=== PATIENT | male | born 1930 | race Caucasian/White ===

== ENCOUNTER 2017-02-16 11:51 | Inpatient (IN) | payer MEDICARE, BC ==
[2017-02-16] MEDS ORDERED: SODIUM CHLORIDE 0.9% 1,000 ML IV ONE ×2 (12:40→16:31)
[2017-02-16] MEDS ORDERED: SODIUM CHLORIDE 0.9% 500 ML IV ONE (12:40)
[2017-02-16 12:58] LABS: Basophils # (A) 0.1 k/uL (0-0.2); Basophils % (A) 1 %; CH 31.4; CHCM 33.6; Eosinophils # (A) 0.1 k/uL (0-0.7); Eosinophils % (A) 1 %; HCT 38.4 % (39.0-53.0); HDW 2.34; Luc # (Auto) 0.27; Luc % (Auto) 4; Lymphocytes # (A) 0.7 k/uL (1.0-4.8); Lymphocytes % (A) 10 %; MCH 31.8 pg (25.0-35.0); MCV 93.7 fL (80.0-100.0); Mean Platelet Volume 7.3; Monocytes # (A) 0.8 k/uL (0-1.0); Monocytes % (A) 11 %; Neutrophils % (A) 73 %; RDW 13.5 % (11.5-15.5); WBC 6.8 k/uL (3.8-10.6); WBC (Perox) 6.98
[2017-02-16 12:59] LABS: Glucose,Whole Blood 125 mg/dL (75-99)
--- NOTE | 2017-02-16 13:00 | ED ---
General Adult HPI - General Chief complaint: Altered Mental Status Stated complaint: ALTERED MENTAL Time Seen by Provider: 02/16/17 12:39 Source: patient, RN notes reviewed, old records reviewed Mode of arrival: ambulatory Limitations: no limitations - History of Present Illness Initial comments: This is an 86-year-old male the ER for evaluation of hallucinations and delusions. Patient has medical history of similar symptoms when taking benzodiazepines. Patient currently not on any new medications no but benzodiazepines. Patient does have extensive medical history. Mainly surrounding heart disease. Patient has no traumas no falls no fevers no headache and no neurological complaints. Family states patient is normally lucid, denies drugs or alcohol, states patient's symptoms seemed rapists persistent and increasing, they seem to be believed thoughts - Related Data Home Medications Medication Instructions Recorded Confirmed Aspirin 81 mg PO QAM 04/15/16 02/16/17 Enalapril Maleate [Vasotec] 2.5 mg PO QAM 04/15/16 02/16/17 Furosemide [Lasix] 20 mg PO DAILY@1200 04/15/16 02/16/17 Potassium Chloride [Klor-Con 10] 10 meq PO QAM 04/15/16 02/16/17 Simvastatin [Zocor] 40 mg PO HS 04/15/16 02/16/17 Tamsulosin [Flomax] 0.4 mg PO HS 04/15/16 02/16/17 Warfarin [Coumadin] 2.5 mg PO MOWEFR 04/15/16 02/16/17 Warfarin [Coumadin] 5 mg PO SUTUTHSA 04/15/16 02/16/17 Vit C/E/Zn/Coppr/Lutein/Zeaxan 1 cap PO BID 02/16/17 02/16/17 [Preservision Areds 2 Softgel] Allergies Allergy/AdvReac Type Severity Reaction Status Date / Time lorazepam [From Ativan] AdvReac Hallucinati Verified 02/16/17 12:34 ons zolpidem [From Ambien] AdvReac Hallucinati Verified 02/16/17 12:34 ons Review of Systems ROS Statement: Those systems with pertinent positive or pertinent negative responses have been documented in the HPI. ROS Other: All systems not noted in ROS Statement are negative. Past Medical History Past Medical History: Atrial Fibrillation, Coronary Artery Disease (CAD), Hyperlipidemia, Hypertension, Myocardial Infarction ([place]), Prostate Disorder Additional Past Medical History / Comment(s): Sleep apnea, no cpap, macular degeneration of right eye, blind L eye. Last Myocardial Infarction Date:: 2006 History of Any Multi-Drug Resistant Organisms: None Reported Past Surgical History: Cardiac Valve Replacement, Coronary Bypass/CABG, Heart Catheterization Additional Past Surgical History / Comment(s): 2006 - CABG - triple, aortic valve replaced, Loop procedure on 06-18-16. Past Anesthesia/Blood Transfusion Reactions: No Reported Reaction Past Psychological History: No Psychological Hx Reported Smoking Status: Never smoker Past Alcohol Use History: Occasional Additional Past Alcohol Use History / Comment(s): Hx. of drinking alcohol daily. states he currently not drinking alcohol because of these upcoming procedures. Past Drug Use History: None Reported - Past Family History Mother Family Medical History: Cancer Additional Family Medical History / Comment(s): breast cancer at 62 Father Additional Family Medical History / Comment(s): old age at 82 General Exam Limitations: no limitations General appearance: alert, in no apparent distress Head exam: Present: atraumatic, normocephalic, normal inspection Eye exam: Present: normal appearance, PERRL, EOMI. Absent: scleral icterus, conjunctival injection, periorbital swelling ENT exam: Present: normal exam, mucous membranes moist Neck exam: Present: normal inspection. Absent: tenderness, meningismus, lymphadenopathy Respiratory exam: Present: normal lung sounds bilaterally. Absent: respiratory distress, wheezes, rales, rhonchi, stridor Cardiovascular Exam: Present: regular rate, normal rhythm, normal heart sounds. Absent: systolic murmur, diastolic murmur, rubs, gallop, clicks GI/Abdominal exam: Present: soft, normal bowel sounds. Absent: distended, tenderness, guarding, rebound, rigid Extremities exam: Present: normal inspection, full ROM, normal capillary refill. Absent: tenderness, pedal edema, joint swelling, calf tenderness Back exam: Present: normal inspection Neurological exam: Present: alert, oriented X3, CN II-XII intact Psychiatric exam: Present: normal affect, normal mood Skin exam: Present: warm, dry, intact, normal color. Absent: rash Course Vital Signs 02/16/17 02/16/17 02/16/17 12:16 13:21 14:46 Temperature 98.7 F 97.3 F L Pulse Rate 75 85 81 Respiratory 18 18 18 Rate Blood Pressure 108/70 122/69 139/65 O2 Sat by Pulse 95 96 100 Oximetry 02/16/17 15:55 Temperature Pulse Rate 80 Respiratory 18 Rate Blood Pressure 156/70 O2 Sat by Pulse 96 Oximetry - Reevaluation(s) Reevaluation #1: 02/16/17 13:00 At this time patient is able to answer questions appropriately EKG Findings - EKG Comments: EKG Findings:: EKG shows A. fib rate of 88, QRS was 66, QTC 5:15 Medical Decision Making - Medical Decision Making 78 male here with altered mental status, patient positive UTI. Patient be admitted for IV antibiotics, IV resuscitation IV fluid. - Lab Data Result diagrams: 02/16/17 12:44 02/16/17 12:44 Lab Results 02/16/17 02/16/17 02/16/17 Range/Units 12:33 12:44 12:44 WBC (3.8-10.6) k/uL RBC (4.30-5.90) m/uL Hgb (13.0-17.5) gm/dL Hct (39.0-53.0) % MCV (80.0-100.0) fL MCH (25.0-35.0) pg MCHC (31.0-37.0) g/dL RDW (11.5-15.5) % Plt Count (150-450) k/uL Neutrophils % % Lymphocytes % % Monocytes % % Eosinophils % % Basophils % % Neutrophils # (1.3-7.7) k/uL Lymphocytes # (1.0-4.8) k/uL Monocytes # (0-1.0) k/uL Eosinophils # (0-0.7) k/uL Basophils # (0-0.2) k/uL PT (9.0-12.0) sec INR (<1.1) APTT (22.0-30.0) sec Sodium (137-145) mmol/L Potassium (3.5-5.1) mmol/L Chloride (98-107) mmol/L Carbon Dioxide (22-30) mmol/L Anion Gap mmol/L BUN (9-20) mg/dL Creatinine (0.66-1.25) mg/dL Est GFR (MDRD) Af Amer (>60 ml/min/1.73 sqM) Est GFR (MDRD) Non-Af (>60 ml/min/1.73 sqM) Glucose (74-99) mg/dL POC Glucose (mg/dL) 125 H (75-99) mg/dL POC Glu [employer] Representative ID Jyoti Grewal Calcium (8.4-10.2) mg/dL Phosphorus (2.5-4.5) mg/dL Magnesium (1.6-2.3) mg/dL Total Bilirubin (0.2-1.3) mg/dL AST (17-59) U/L ALT (21-72) U/L Alkaline Phosphatase (38-126) U/L Ammonia 10 (<30) umol/L Total Creatine Kinase 166 (55-170) U/L CK-MB (CK-2) 4.8 H* (0.0-2.4) ng/mL CK-MB (CK-2) Rel Index 2.9 Troponin I 0.045 H* (0.000-0.034) ng/mL Total Protein (6.3-8.2) g/dL Albumin (3.5-5.0) g/dL Urine Color Urine Appearance (Clear) Urine pH (5.0-8.0) Ur Specific [place] (1.001-1.035) Urine Protein (Negative) Urine Glucose (UA) (Negative) Urine Ketones (Negative) Urine Blood (Negative) Urine Nitrite (Negative) Urine Bilirubin (Negative) Urine Urobilinogen (<2.0) mg/dL Ur Leukocyte Esterase (Negative) Urine RBC (0-5) /hpf Urine WBC (0-5) /hpf Ur Squamous Epith Cells (0-4) /hpf Urine Bacteria (None) /hpf Urine Mucus (None) /hpf Urine Opiates Screen (NotDetected) Ur Oxycodone Screen (NotDetected) Urine Methadone Screen (NotDetected) Ur Propoxyphene Screen (NotDetected) Ur Barbiturates Screen (NotDetected) U Tricyclic Antidepress (NotDetected) Ur Phencyclidine Scrn (NotDetected) Ur Amphetamines Screen (NotDetected) U Methamphetamines Scrn (NotDetected) U Benzodiazepines Scrn (NotDetected) Urine Cocaine Screen (NotDetected) U Marijuana (THC) Screen (NotDetected) 02/16/17 02/16/17 02/16/17 Range/Units 12:44 12:44 12:44 WBC 6.8 (3.8-10.6) k/uL RBC 4.10 L (4.30-5.90) m/uL Hgb 13.0 (13.0-17.5) gm/dL Hct 38.4 L (39.0-53.0) % MCV 93.7 (80.0-100.0) fL MCH 31.8 (25.0-35.0) pg MCHC 34.0 (31.0-37.0) g/dL RDW 13.5 (11.5-15.5) % Plt Count 146 L (150-450) k/uL Neutrophils % 73 % Lymphocytes % 10 % Monocytes % 11 % Eosinophils % 1 % Basophils % 1 % Neutrophils # 5.0 (1.3-7.7) k/uL Lymphocytes # 0.7 L (1.0-4.8) k/uL Monocytes # 0.8 (0-1.0) k/uL Eosinophils # 0.1 (0-0.7) k/uL Basophils # 0.1 (0-0.2) k/uL PT 19.7 H (9.0-12.0) sec INR 2.0 (<1.1) APTT 28.8 (22.0-30.0) sec Sodium 132 L (137-145) mmol/L Potassium 4.6 (3.5-5.1) mmol/L Chloride 101 (98-107) mmol/L Carbon Dioxide 22 (22-30) mmol/L Anion Gap 9 mmol/L BUN 32 H (9-20) mg/dL Creatinine 0.97 (0.66-1.25) mg/dL Est GFR (MDRD) Af Amer >60 (>60 ml/min/1.73 sqM) Est GFR (MDRD) Non-Af >60 (>60 ml/min/1.73 sqM) Glucose 115 H (74-99) mg/dL POC Glucose (mg/dL) (75-99) mg/dL POC Glu [employer] Representative ID Calcium 8.5 (8.4-10.2) mg/dL Phosphorus 2.9 (2.5-4.5) mg/dL Magnesium 2.3 (1.6-2.3) mg/dL Total Bilirubin 0.9 (0.2-1.3) mg/dL AST 64 H (17-59) U/L ALT 70 (21-72) U/L Alkaline Phosphatase 88 (38-126) U/L Ammonia (<30) umol/L Total Creatine Kinase (55-170) U/L CK-MB (CK-2) (0.0-2.4) ng/mL CK-MB (CK-2) Rel Index Troponin I (0.000-0.034) ng/mL Total Protein 6.4 (6.3-8.2) g/dL Albumin 3.5 (3.5-5.0) g/dL Urine Color Urine Appearance (Clear) Urine pH (5.0-8.0) Ur Specific [place] (1.001-1.035) Urine Protein (Negative) Urine Glucose (UA) (Negative) Urine Ketones (Negative) Urine Blood (Negative) Urine Nitrite (Negative) Urine Bilirubin (Negative) Urine Urobilinogen (<2.0) mg/dL Ur Leukocyte Esterase (Negative) Urine RBC (0-5) /hpf Urine WBC (0-5) /hpf Ur Squamous Epith Cells (0-4) /hpf Urine Bacteria (None) /hpf Urine Mucus (None) /hpf Urine Opiates Screen (NotDetected) Ur Oxycodone Screen (NotDetected) Urine Methadone Screen (NotDetected) Ur Propoxyphene Screen (NotDetected) Ur Barbiturates Screen (NotDetected) U Tricyclic Antidepress (NotDetected) Ur Phencyclidine Scrn (NotDetected) Ur Amphetamines Screen (NotDetected) U Methamphetamines Scrn (NotDetected) U Benzodiazepines Scrn (NotDetected) Urine Cocaine Screen (NotDetected) U Marijuana (THC) Screen (NotDetected) 02/16/17 Range/Units 13:51 WBC (3.8-10.6) k/uL RBC (4.30-5.90) m/uL Hgb (13.0-17.5) gm/dL Hct (39.0-53.0) % MCV (80.0-100.0) fL MCH (25.0-35.0) pg MCHC (31.0-37.0) g/dL RDW (11.5-15.5) % Plt Count (150-450) k/uL Neutrophils % % Lymphocytes % % Monocytes % % Eosinophils % % Basophils % % Neutrophils # (1.3-7.7) k/uL Lymphocytes # (1.0-4.8) k/uL Monocytes # (0-1.0) k/uL Eosinophils # (0-0.7) k/uL Basophils # (0-0.2) k/uL PT (9.0-12.0) sec INR (<1.1) APTT (22.0-30.0) sec Sodium (137-145) mmol/L Potassium (3.5-5.1) mmol/L Chloride (98-107) mmol/L Carbon Dioxide (22-30) mmol/L Anion Gap mmol/L BUN (9-20) mg/dL Creatinine (0.66-1.25) mg/dL Est GFR (MDRD) Af Amer (>60 ml/min/1.73 sqM) Est GFR (MDRD) Non-Af (>60 ml/min/1.73 sqM) Glucose (74-99) mg/dL POC Glucose (mg/dL) (75-99) mg/dL POC Glu [employer] Representative ID Calcium (8.4-10.2) mg/dL Phosphorus (2.5-4.5) mg/dL Magnesium (1.6-2.3) mg/dL Total Bilirubin (0.2-1.3) mg/dL AST (17-59) U/L ALT (21-72) U/L Alkaline Phosphatase (38-126) U/L Ammonia (<30) umol/L Total Creatine Kinase (55-170) U/L CK-MB (CK-2) (0.0-2.4) ng/mL CK-MB (CK-2) Rel Index Troponin I (0.000-0.034) ng/mL Total Protein (6.3-8.2) g/dL Albumin (3.5-5.0) g/dL Urine Color Yellow Urine Appearance Cloudy (Clear) Urine pH 5.5 (5.0-8.0) Ur Specific [place] 1.012 (1.001-1.035) Urine Protein Negative (Negative) Urine Glucose (UA) Negative (Negative) Urine Ketones Negative (Negative) Urine Blood Small H (Negative) Urine Nitrite Positive (Negative) Urine Bilirubin Negative (Negative) Urine Urobilinogen <2.0 (<2.0) mg/dL Ur Leukocyte Esterase Moderate H (Negative) Urine RBC 1 (0-5) /hpf Urine WBC 38 H (0-5) /hpf Ur Squamous Epith Cells <1 (0-4) /hpf Urine Bacteria Moderate H (None) /hpf Urine Mucus Rare H (None) /hpf Urine Opiates Screen Not Detected (NotDetected) Ur Oxycodone Screen Not Detected (NotDetected) Urine Methadone Screen Not Detected (NotDetected) Ur Propoxyphene Screen Not Detected (NotDetected) Ur Barbiturates Screen Not Detected (NotDetected) U Tricyclic Antidepress Not Detected (NotDetected) Ur Phencyclidine Scrn Not Detected (NotDetected) Ur Amphetamines Screen Not Detected (NotDetected) U Methamphetamines Scrn Not Detected (NotDetected) U Benzodiazepines Scrn Not Detected (NotDetected) Urine Cocaine Screen Not Detected (NotDetected) U Marijuana (THC) Screen Not Detected (NotDetected) - Radiology Data Radiology results: report reviewed (CT brain negative, chest x-ray negative for acute disease), image reviewed Disposition Clinical Impression: Altered mental status, UTI (urinary tract infection) Disposition: ADMITTED IP TO THIS [facility] Condition: Fair
[2017-02-16 13:10] LABS: ALT 70 U/L (21-72); AST 64 U/L (17-59); Alkaline Phosphatase 88 U/L (38-126); Anion Gap 9 mmol/L; Blood Urea Nitrogen 32 mg/dL (9-20); Calcium 8.5 mg/dL (8.4-10.2); Carbon Dioxide 22 mmol/L (22-30); Chloride 101 mmol/L (98-107); Glucose 115 mg/dL (74-99); Magnesium 2.3 mg/dL (1.6-2.3); Non-African American GFR(MDRD) >60 (>60 ml/min/1.73 sqM); Phosphorous 2.9 mg/dL (2.5-4.5); Potassium 4.6 mmol/L (3.5-5.1); Sodium 132 mmol/L (137-145); Total Bilirubin 0.9 mg/dL (0.2-1.3); Total Protein 6.4 g/dL (6.3-8.2)
[2017-02-16 13:17] LABS: Partial Thromboplastin Time 28.8 sec (22.0-30.0); Prothrombin Time 19.7 sec (9.0-12.0)
[2017-02-16 13:38] LABS: Creatine Kinase MB 4.8 ng/mL (0.0-2.4); Troponin I 0.045 ng/mL (0.000-0.034)
[2017-02-16 14:07] LABS: Appearance,Urine Cloudy (Clear); Bacteria,Urine Moderate /hpf; Bilirubin,Urine Negative (Negative); Glucose,Urine (UA) Negative (Negative); Ketones,Urine Negative (Negative); Leukocyte Esterase,Urine Moderate (Negative); Mucus,Urine Rare /hpf; Nitrite,Urine Positive (Negative); PH, Urine 5.5 (5.0-8.0); Particle Count 21001; Protein,Urine Negative (Negative); RBC,Urine 1 /hpf (0-5); Specific Gravity,Urine 1.012 (1.001-1.035); Squamous Epithelial Cell,Urine <1 /hpf (0-4); UA Billing (MACRO vs. MICRO) MICRO; Urobilinogen,Urine <2.0 mg/dL (<2.0); WBC,Urine 38 /hpf (0-5)
--- NOTE | 2017-02-16 14:27 | CT ---
EXAMINATION TYPE: CT brain wo con DATE OF EXAM: 02/16/2017 2:19 PM COMPARISON: NONE HISTORY: 78-year-old male, poor historian. Patient has no complaints at time of study. Patient show s signs of confusion and altered mental status per family. TECHNIQUE: Examination was done in axial plane without intravenous contrast. Coronal and sagittal r econstructions performed. CT DLP: 1138 mGycm Automated exposure control for dose reduction was used. FINDINGS: There is no evidence of acute intracranial hemorrhage, acute ischemic changes, mass, mass-effect, or extra-axial fluid collection. There is no effacement of cerebral sulci or basal subarachnoid cister ns. There is no hydrocephalus. There is no midline shift. Simpson-white matter distinction is preserv ed. Focal 1 cm calcification along the anterior right falx likely dystrophic dural calcifications. Mild v entricular prominence likely secondary to central cerebral volume loss. Visualized paranasal sinuses and mastoid air cells are well pneumatized. Orbits and globes are intact . There is soft tissue gas seen along the right visiting professor space tracking up the right temporal. IMPRESSION: 1. Mild central atrophy without acute intracranial abnormality seen. 2. Soft tissue gas in the right visiting professor space tracking up the right mormon. This air appears to be intravenous and could relate to peripheral line placement or other intravenous injections. Clinicall y correlate to exclude gas relating to tracking infection or penetrating injury.
--- NOTE | 2017-02-16 14:48 | XR ---
EXAMINATION TYPE: XR chest 2V DATE OF EXAM: 02/16/2017 2:39 PM COMPARISON: 06/26/2016 TECHNIQUE: PA and lateral views submitted. HISTORY: Altered mental status FINDINGS: The lungs are clear and there is no pneumothorax, pleural effusion, or focal pneumonia. Prominence of the interstitium is seen with marked cardiomegaly, postsurgical change including valve replacement surgery. Cardiac device seen. No pneumothorax. Arthropathy of the shoulders. Underlying COPD seen. H ypertrophic and degenerative change of the spine noted. IMPRESSION: 1. Cardiomegaly with findings suggestive of central venous congestion.
[2017-02-16] MEDS ORDERED: FUROSEMIDE 10 MG/ML 2 ML VIAL IV ONE (19:08)
[2017-02-16] MEDS ORDERED: SODIUM CHLORIDE 0.9% 1,000 ML IV SCH (19:15)
[2017-02-16] MEDS ORDERED: WARFARIN 5 MG TAB PO SCH (22:30)
[2017-02-16] MEDS: WARFARIN 2.5 MG TAB PO SCH (23:20)
[2017-02-17] MEDS: FUROSEMIDE 20 MG TAB PO SCH (08:29)
[2017-02-17 08:55] LABS: CH 31.3; HCT 39.1 % (39.0-53.0); HDW 2.36; HGB 12.8 gm/dL (13.0-17.5); INR 2.5 (<1.1); MCH 31.2 pg (25.0-35.0); MCHC 32.6 g/dL (31.0-37.0); MCV 95.5 fL (80.0-100.0); Mean Platelet Volume 7.1; Prothrombin Time 24.1 sec (9.0-12.0); RDW 13.5 % (11.5-15.5); WBC 9.5 k/uL (3.8-10.6)
[2017-02-17] MEDS ORDERED: ENOXAPARIN 40 MG/0.4 ML SYRINGE SQ SCH (09:00)
[2017-02-17] MEDS ORDERED: FUROSEMIDE 10 MG/ML 2 ML VIAL IV ONE (09:00)
[2017-02-17] MEDS: LISINOPRIL 5 MG TAB PO SCH (09:03)
[2017-02-17] MEDS: POTASSIUM CHLORIDE ER 10 MEQ TAB.ER.PRT PO SCH (09:03)
[2017-02-17] MEDS: ASPIRIN 81 MG CHEW PO SCH (09:03)
--- NOTE | 2017-02-17 09:29 | HP ---
DATE OF ADMISSION: CHIEF COMPLAINT: Confusion. HISTORY OF PRESENT ILLNESS: This is an 86-year-old gentleman who was referred to the emergency room. The called me up and said that the patient since , for about 3 days, has been having some hallucinations and inappropriate behavior, lying around in bed and some chills off and on, but no cough and congestion. The patient's was not sure what was going on so she called and I recommended the patient be evaluated in the emergency room. The patient was seen in the ER. The patient's vital signs are stable. He is intermittently confused. The patient has no other focal neurological deficits. He did have a CT scan of the brain did not reveal any suggestion of CVA. The patient was noted to have evidence of urinary tract infection. He denies any dysuria, hematuria. Does have frequency. The patient has had a previous history of coronary artery bypass graft and VSD and has history of mitral regurgitation. He has chronic atrial fibrillation and has a pacemaker sick sinus syndrome. The patient has been on anticoagulation. No recent falls. No recent fever, chills, or any change in medications. He does use Ativan at night for sleep, which he has not taken for a few days. The says during the night he just was lying in bed just talking away, irrelevant things. At present, the patient does give a good history; however, suddenly he will flip around talking in a sense that he does not realize he is in the hospital emergency room. He feels that the night prior to admission that there were people in the opposite room who were just talking about some bills, which subsequently was settled and such and such. PAST MEDICAL HISTORY: Significant for history of long-standing hypertension, history of VSD with a previous repair and then subsequent aortic valve replacement and bypass surgery. The patient also has a history of chronic atrial fibrillation. Back in April last year the patient did have episode of syncope and noted to have complete heart block. The patient required a pacemaker. The patient does have a history of chronic atrial fibrillation. He also has history of hyperlipidemia and gout. 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 No history of any rheumatic fever. No history of any myocardial infarction or CVA. PAST SURGICAL HISTORY: Significant for left knee surgery, hernia surgery tonsillectomy cardiac surgery x2 also cataract surgery. He had a history of varicose veins with spontaneous bleeding. No surgical procedure was done. The patient has not had any further problems relating to that. PERSONAL HISTORY: Nonsmoker. Alcohol none. ALLERGIES: None known. MEDICATIONS: 1. Coumadin 5 mg Thursday, Thursday, Thursday, , Thursday and 2.5 mg Thursday, Thursday and Thursday. 2. Multivitamins. 3. Eye vitamins. 4. He also takes Flomax 0.4 mg at bedtime. 5. Zocor 40 mg daily. 6. Potassium chloride 10 mEq daily. 7. Lasix 20 mg daily. 8. Enalapril 2.5 mg daily. 9. Aspirin 81 mg daily. 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 Patient is and lives with spouse. FAMILY MEDICAL HISTORY: The patient has 2 daughters, one daughter has a history of paroxysmal atrial fibrillation. His one son has rheumatoid arthritis and other son has hyperlipidemia. Another son in good health. The other daughter is in good health. REVIEW OF SYSTEMS: NEURO: Denies any headaches, dizziness. No double vision, blurred vision. Denies symptoms of TIA, syncope, seizure. PSYCH: Present symptoms of intermittent confusion and some imaginary scenarios. CARDIAC: No symptoms of chest pain, angina, palpitations. Denies shortness of breath. However, the patient is mildly tachypneic while lying in bed. RESPIRATORY: Denies shortness of breath, cough, hemoptysis. Does have some dyspnea on exertion, which is stable. The patient, however, denies any chest pain. GI: No nausea, vomiting, abdominal pain, heartburn, diarrhea, constipation, hematochezia, melena. : No symptoms of dysuria, hematuria, urgency. Does have some frequency. EXTREMITIES: Denies pain. History of mild chronic edema of ankles. CONSTITUTIONAL: No fever or chills. SKIN: No rash. ENT: Blind right eye. ENT: No sore throat or neck pain. MUSCULOSKELETAL: Some mild chronic arthritic pain. PHYSICAL EXAMINATION: Pleasant gentleman, at present, mildly tachypneic, lying in bed even though he denied shortness of breath. Vital signs revealed temperature 98, pulse 86, respirations 18, blood pressure 141/61, pulse ox of 95% on 2 liters. HEENT: Normocephalic. Neck decreased range of motion. Left pupil reactive. Nostrils are clear. Oral cavity moist. Pharynx, no exudates. Neck reveals no JVD, carotid bruits, or thyromegaly. Neck is supple. CHEST EXAMINATION: Trachea central. Increased AP diameter of chest. Increased percussion noted bilaterally. On auscultation the patient has wet crackles bilateral bases. CARDIAC: Distant heart sounds. S1, S2 with no gallops. Systolic murmur 2/6 apex. Irregular rhythm. ABDOMEN: Soft. Bowel sounds are active. EXTREMITIES: Reveal trace edema of ankles. NEUROLOGIC: Awake, alert, and oriented intermittently with intermittent confusion. Moves cranial nerves II through XII except for the vision loss in the right eye, appear intact. The patient does have symmetrical movements of the hand. He has no difficulty swallowing. Speech is clear. Moves both upper and lower extremities fairly reasonably well with coordinated fashion. LABORATORY ASSESSMENT: CBC which revealed white count 6.8, hemoglobin 13, platelet count 146, INR of 2.0, sodium 132, BUN 32, creatinine 0.97, GFR is greater than 60. Glucose 115. AST 64. Ammonia is 10. CK-MB was 4.8 with a troponin 0.045. CPK 166. Urine positive for nitrates, 38 WBCs. Drug screen was negative. A brain CT: Mild central atrophy without any intracranial abnormality was seen. Chest x-ray reveals a mild aortic aneurysmal dilatation, stable, and cardiomegaly with findings suggestive of central venous congestion. ASSESSMENT: 1. Urinary tract infection. 2. Metabolic encephalopathy with intermittent confusion. 3. 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 4. Chronic atrial fibrillation. 5. History of sick sinus syndrome. 6. Anticoagulated status. 7. Mild prerenal azotemia. PLAN: We will continue the patient on Rocephin. The patient was given some IV fluids in the ER and the patient's chest examination clinically reveals bilateral wet crackles at the bases. The patient is mildly tachypneic even though he does not complain of shortness of breath with oxygen. The patient will be given Lasix and monitor his respiratory status closely. The patient was admitted to the hospital for further monitoring for how his present medical status evolves. Patient's prognosis remains guarded. Condition was discussed with the daughter. It should be noted that the patient has had previously no history of dementia or any mental status changes.
[2017-02-17 10:27] LABS: Anion Gap 9 mmol/L; Blood Urea Nitrogen 25 mg/dL (9-20); Calcium 8.3 mg/dL (8.4-10.2); Carbon Dioxide 24 mmol/L (22-30); Chloride 103 mmol/L (98-107); Glucose 108 mg/dL (74-99); Non-African American GFR(MDRD) >60 (>60 ml/min/1.73 sqM); Potassium 4.4 mmol/L (3.5-5.1); Sodium 136 mmol/L (137-145)
[2017-02-17] MEDS: TAMSULOSIN 0.4 MG CAP.ER.24H PO SCH (20:39)
[2017-02-17] MEDS ORDERED: WARFARIN 5 MG TAB PO SCH (22:28)
[2017-02-18] MEDS: LISINOPRIL 5 MG TAB PO SCH (07:54)
[2017-02-18] MEDS: POTASSIUM CHLORIDE ER 10 MEQ TAB.ER.PRT PO SCH (07:54)
[2017-02-18] MEDS: ASPIRIN 81 MG CHEW PO SCH (07:54)
[2017-02-18 10:11] LABS: INR 2.6 (<1.1); Prothrombin Time 24.9 sec (9.0-12.0)
--- NOTE | 2017-02-18 10:11 | PN ---
DATE OF SERVICE: 02/17/2017 CHIEF COMPLAINT: Re-evaluation. HISTORY OF PRESENT ILLNESS: This 86-year-old was admitted to the hospital because of confusion, some hallucinations, and intermittent confusion. The patient was also noted to have evidence of urinary tract infection. He is known to have a history of chronic atrial fibrillation, previous VSD, and previous cardiac surgery. The patient has some symptoms of congestive heart failure. Yesterday when seen in the emergency room he did not have symptoms. He did get some IV fluids. At the time of my evaluation he was mildly tachypneic and did have some wet crackles at the bases. The patient was given some Lasix with help. His BNP was 6830. The patient, during the night, has had confusion off and on. This morning he is lucid at the time of examination, however, later reported to be confused. REVIEW OF SYSTEMS: NEURO: Denies any headaches, dizziness. PSYCH: No anxiety. CARDIAC: No chest pain, angina, palpitations. RESPIRATORY: Denies shortness of breath, cough. GI: No nausea, vomiting, abdominal pain, diarrhea. : No symptoms of dysuria, hematuria. EXTREMITIES: Denies pain. CONSTITUTIONAL: No fever or chills. PHYSICAL EXAMINATION: An 86-year-old gentleman, at present in no distress. He, however, has taken his short off and is undressed in the bed. Upon discussion with him, he does after a while talk about being locked out of the house with no keys, etc. VITAL SIGNS: Temperature 97.3, pulse 93, respirations 16, blood pressure 143/71, pulse ox of 91% on 2 liters. HEENT: Normocephalic. NECK: No JVD. CHEST: Clear to auscultation with generalized decreased air flow and a few crackles at the left base. CARDIAC: Distant heart sounds. S1, S2 with no gallops. Systolic murmur 2/6 left sternal border. ABDOMEN: Soft, bowel sounds present. Extremities reveal no edema. NEUROLOGIC: Awake, alert, oriented with intermittent confusion. LABORATORY EVALUATION: Reveals CBC which shows a hemoglobin of 9.5, white count 12.8, platelets 172, INR is 2.5. Sodium is 136. Some improvement from yesterday. BUN 25, creatinine 1.03, glucose 108. ASSESSMENT: 1. Acute altered mental status with some delirium. 2. Congestive heart failure secondary to systolic dysfunction and diastolic dysfunction. 3. Acute congestive heart failure secondary to systolic and diastolic dysfunction. 4. Chronic atrial fibrillation. 5. Urinary tract infection. 6. Hyponatremia improved. 7. Prerenal azotemia, improved. PLAN: The patient is stable. Continue present medical regimen. The patient's condition discussed with the patient and spouse over the phone. Prognosis remains guarded. The patient still continues to be somewhat delirious at times, may add Seroquel. The patient has no history of any alcoholism.
[2017-02-18] MEDS: FUROSEMIDE 20 MG TAB PO SCH (12:24)
[2017-02-18] MEDS: TAMSULOSIN 0.4 MG CAP.ER.24H PO SCH (20:18)
[2017-02-18] MEDS: WARFARIN 2.5 MG TAB PO SCH (20:18)
--- NOTE | 2017-02-18 22:44 | PN ---
CHIEF COMPLAINT: Re-evaluation. HISTORY OF PRESENT ILLNESS: This gentleman was admitted to the hospital with increased confusion and evidence of urinary tract infection. The patient's general condition is improved today. He is less confused. The patient did sleep through the night. The patient this morning is not talking of any irrelevant and wrong things. REVIEW OF SYSTEMS: NEURO: Denies any headaches, dizziness. PSYCH: No anxiety. CARDIAC: No chest pain, angina, palpitations. RESPIRATORY: No shortness of breath, cough, hemoptysis. GI: No nausea, vomiting, abdominal pain, diarrhea. : No symptoms of dysuria, hematuria. EXTREMITIES: Denies pain, edema. CONSTITUTIONAL: No fever, chills. PHYSICAL EXAMINATION: Pleasant gentleman in no distress. VITAL SIGNS: Stable. Temperature 98.2, pulse 85, respiration 16, blood pressure 119/69, pulse ox 97% on room air. HEENT: Normocephalic. NECK: No JVD. Chest is clear to auscultation with mild decreased air flow at the left base. CARDIAC: Normal S1, S2 with no gallops. Systolic murmur 2/6, left sternal border. ABDOMEN: Soft. No palpable masses. Bowel sounds normal. No organomegaly. No abdominal bruits. Extremities reveal no edema. NEUROLOGIC: Awake, alert, oriented x3 with well-coordinated movements. Patient is able to make appropriate entire conversation, unlike the past 2 days. Moves both upper and lower extremities. LABORATORY ASSESSMENT: Urine culture is growing E coli. Hemoglobin is 12.8. INR was 2.6. ASSESSMENT: 1. Urinary tract infection with sepsis. 2. Encephalopathy/delirium, resolving. 3. Congestive cardiac failure, improved. 4. History of VSD. 5. History of aortic valve surgery. 6. Chronic atrial fibrillation. 7. Anticoagulated on Coumadin. PLAN: The patient at present is stable. Continue present medical regimen. His breathing is improved. The patient's delirium is improved. The patient will be continued on present antibiotics. Potential discharge home tomorrow. Patient's condition discussed with his on the phone.
[2017-02-19] MEDS: ASPIRIN 81 MG CHEW PO SCH (07:32)
[2017-02-19] MEDS: POTASSIUM CHLORIDE ER 10 MEQ TAB.ER.PRT PO SCH (07:33)
[2017-02-19] MEDS: LISINOPRIL 5 MG TAB PO SCH (07:33)
[2017-02-19 08:02] VITALS: BP 136/68; PULSE 81; RESP 16; TEMP 97.7
[2017-02-19] MEDS: FUROSEMIDE 20 MG TAB PO SCH (11:08)
--- NOTE | 2017-02-25 18:58 | P.DS ---
Providers Date of admission: 02/16/17 16:31 Attending physician: Reji Lopez Primary care physician: Reji Lopez Hospital Course: Hospital course: This 86-year-old gentleman was admitted to the hospital with a new onset of confusion and some hallucinations. Patient had no fever or white count but had evidence of urinary tract infection. Urine did grow E. coli. The patient was brought in the emergency room in view of about after symptoms continued for a couple of days. Patient does have underlying history of chronic atrial fibrillation, coronary artery disease, mitral regurgitation and a previous CABG and valve surgery. The patient was hemodynamically stable. After initial evaluation in the emergency room is admitted to the hospital because of the significant confusion and inability to make appropriate judgment. Following hospitalization patient's placed on IV antibiotics and hydration. Patient's symptoms improved with resolution of his symptoms. The patient was ambulatory. He is discharged home. Final diagnosis to include 1. Urinary tract infection 2. Encephalopathy/delirium secondary to urinary tract infection 3. Chronic atrial fibrillation ablation 4. Valvular heart disease 5. Hypertension. Patient Condition at Discharge: Fair Plan - Discharge Summary New Discharge Prescriptions: Amoxicillin 500 mg PO Q8H #30 capsule Discharge Medication List Aspirin 81 mg PO QAM 04/15/16 [History] Enalapril Maleate [Vasotec] 2.5 mg PO QAM 04/15/16 [History] Furosemide [Lasix] 20 mg PO DAILY@1200 04/15/16 [History] Potassium Chloride [Klor-Con 10] 10 meq PO QAM 04/15/16 [History] Simvastatin [Zocor] 40 mg PO HS 04/15/16 [History] Tamsulosin [Flomax] 0.4 mg PO HS 04/15/16 [History] Warfarin [Coumadin] 2.5 mg PO MOWEFR 04/15/16 [History] Warfarin [Coumadin] 5 mg PO SUTUTHSA 04/15/16 [History] Vit C/E/Zn/Coppr/Lutein/Zeaxan [Preservision Areds 2 Softgel] 1 cap PO BID 02/16 [History] Amoxicillin 500 mg PO Q8H #30 capsule 02/19/17 [Rx] Follow up Appointment(s)/Referral(s): Reji Lopez MD [Primary Care Provider] - 03/02/17 4:30 pm Patient Instructions/Handouts: Urinary Tract Infection in Men ([place]) Activity/Diet/Wound Care/Special Instructions: Cardiac diet. Discharge Disposition: HOME SELF-CARE
== END 2017-02-19 15:07 | disposition home or self-care (01) | DRG 689 ==
LOC: EC 11:51 → 6SEL 16:31 → 4MS4W 19:53
PROVIDERS: ADMIT Internal Medicine; ATTEND Internal Medicine
DX: N39.0 Urinary tract infection, site not specified (principal); G93.41 Metabolic encephalopathy; I50.41 Acute combined systolic (congestive) and diastolic (congestive) heart failure; E87.1 Hypo-osmolality and hyponatremia; R44.3 Hallucinations, unspecified; F05 Delirium due to known physiological condition; I49.5 Sick sinus syndrome; I48.2 Chronic atrial fibrillation; I11.0 Hypertensive heart disease with heart failure; R79.89 Other specified abnormal findings of blood chemistry; I67.9 Cerebrovascular disease, unspecified; R06.82 Tachypnea, not elsewhere classified; B96.20 Unspecified Escherichia coli [E. coli] as the cause of diseases classified elsewhere; N42.9 Disorder of prostate, unspecified; I25.10 Atherosclerotic heart disease of native coronary artery without angina pectoris; I34.0 Nonrheumatic mitral (valve) insufficiency; I25.2 Old myocardial infarction; G47.30 Sleep apnea, unspecified; M19.90 Unspecified osteoarthritis, unspecified site; H54.41 Blindness, right eye, normal vision left eye; H35.30 Unspecified macular degeneration; M10.9 Gout, unspecified; E78.5 Hyperlipidemia, unspecified; Z95.0 Presence of cardiac pacemaker; Z79.899 Other long term (current) drug therapy; Z79.82 Long term (current) use of aspirin; Z79.01 Long term (current) use of anticoagulants; Z95.1 Presence of aortocoronary bypass graft; Z80.3 Family history of malignant neoplasm of breast; Z95.2 Presence of prosthetic heart valve; Z98.49 Cataract extraction status, unspecified eye; Z86.79 Personal history of other diseases of the circulatory system; Z88.8 Allergy status to other drugs, medicaments and biological substances; Z82.49 Family history of ischemic heart disease and other diseases of the circulatory system; Z87.74 Personal history of (corrected) congenital malformations of heart and circulatory system
CPT/HCPCS: 36415; 70450; 71020; 80048; 80053; 80306; 81001; 82140; 82550; 82553; 83735; 83880; 84100; 84484; 85025; 85027; 85610; 85730; 87040; 87077; 87086; 87186; 93005; 94760; 96361; 96365; 96375; 99285

== ENCOUNTER 2017-07-07 15:51 | Emergency (ER) | payer MEDICARE, BC ==
--- NOTE | 2017-07-07 17:43 | ED ---
General Adult HPI - General Chief complaint: Wound/Laceration Stated complaint: Laceration Lft thumb/pt on blood thinners Time Seen by Provider: 07/07/17 17:34 Source: patient, RN notes reviewed Mode of arrival: ambulatory Limitations: no limitations - History of Present Illness Initial comments: 86-year-old male presents to the emergency department with a chief complaint left thumb laceration. He cut it around 3:00 today and he was also. He is up- to-date on his tetanus. He noticed bleeding and a deep cuts we got that he should be seen. Patient states no other injuries from the incident. Patient states he has no lightheadedness or dizziness. She does take Coumadin. Patient denies any recent fever, chills, shortness of breath, chest pain, back pain, abdominal pain, nausea vomiting, numbness or tingling, dysuria or hematuria, constipation or diarrhea, headaches or visual changes, or any other current symptoms. - Related Data Home Medications Medication Instructions Recorded Confirmed Aspirin 81 mg PO QAM 04/15/16 02/16/17 Enalapril Maleate [Vasotec] 2.5 mg PO QAM 04/15/16 02/16/17 Furosemide [Lasix] 20 mg PO DAILY@1200 04/15/16 02/16/17 Potassium Chloride [Klor-Con 10] 10 meq PO QAM 04/15/16 02/16/17 Simvastatin [Zocor] 40 mg PO HS 04/15/16 02/16/17 Tamsulosin [Flomax] 0.4 mg PO HS 04/15/16 02/16/17 Warfarin [Coumadin] 2.5 mg PO MOWEFR 04/15/16 02/16/17 Warfarin [Coumadin] 5 mg PO SUTUTHSA 04/15/16 02/16/17 Vit C/E/Zn/Coppr/Lutein/Zeaxan 1 cap PO BID 02/16/17 02/16/17 [Preservision Areds 2 Softgel] Previous Rx's Medication Instructions Recorded Amoxicillin 500 mg PO Q8H #30 capsule 02/19/17 Cephalexin [Keflex] 500 mg PO Q6HR #40 cap 07/07/17 Allergies Allergy/AdvReac Type Severity Reaction Status Date / Time lorazepam [From Ativan] AdvReac Hallucinati Verified 07/07/17 16:18 ons zolpidem [From Ambien] AdvReac Hallucinati Verified 07/07/17 16:18 ons Review of Systems ROS Statement: Those systems with pertinent positive or pertinent negative responses have been documented in the HPI. ROS Other: All systems not noted in ROS Statement are negative. Past Medical History Past Medical History: Atrial Fibrillation, Coronary Artery Disease (CAD), Hyperlipidemia, Hypertension, Myocardial Infarction ([place]), Prostate Disorder Additional Past Medical History / Comment(s): Sleep apnea, no cpap, macular degeneration of right eye, blind L eye. Last Myocardial Infarction Date:: 2006 History of Any Multi-Drug Resistant Organisms: None Reported Past Surgical History: Cardiac Valve Replacement, Coronary Bypass/CABG, Heart Catheterization Additional Past Surgical History / Comment(s): 2006 - CABG - triple, aortic valve replaced, Loop procedure on 06-18-16. Past Anesthesia/Blood Transfusion Reactions: No Reported Reaction Past Psychological History: No Psychological Hx Reported Smoking Status: Never smoker Past Alcohol Use History: Daily Past Drug Use History: None Reported - Past Family History Mother Family Medical History: Cancer Additional Family Medical History / Comment(s): breast cancer at 62 Father Additional Family Medical History / Comment(s): old age at 82 General Exam - General Exam Comments Initial Comments: General: The patient is awake and alert, in no distress, and does not appear acutely ill. Neck: The neck is supple, there is no tenderness or JVD. Cardiovascular: There is a regular rate and rhythm. No murmur, rub or gallop is appreciated. Respiratory: Lungs are clear to auscultation, respirations are non-labored, breath sounds are equal. No wheezes, stridor, rales, or rhonchi. Musculoskeletal: Sensation intact with 2+ pulses. Left upper extremity Full range of motion of left hand and all digits. Patient does appear to have a 7 cm circular type laceration to the left distal thumb. Nail and nailbed are intact. Neurological: CN II-XII intact, There are no obvious motor or sensory deficits. Coordination appears grossly intact. Speech is normal. Skin: Skin is warm and dry and no rashes or lesions are noted. Psychiatric: Normal mood and affect. Limitations: no limitations Course Vital Signs 07/07/17 16:14 Temperature 98.5 F Pulse Rate 74 Respiratory 20 Rate Blood Pressure 129/79 O2 Sat by Pulse 98 Oximetry Procedures - Procedures Initial comment: The skin was anesthetized with 1% lidocaine. The laceration was then cleansed with Betadine and irrigated with normal saline. The wound was inspected, and there was no evidence of injury to deep structures. No foreign body was noted in the wound. A total of 7 skin sutures were placed utilizing using 5-0 nylon to a 6 cm left thumb laceration Medical Decision Making - Medical Decision Making 86-year-old male presents emergency Department chief complaint of left thumb laceration. At this time patient underwent x-rays underwent suture care. Patient's x-ray does appear to have an open fracture. He was given Ancef here. We did discuss close follow-up with orthopedics for continued care of the left thumb open fracture. We did discuss return parameters on the family patient's questions. They state [facility] management plan. They will be discharged. - Radiology Data Radiology results: report reviewed, image reviewed Disposition Clinical Impression: Fracture of thumb, left, open, Laceration of left thumb Disposition: HOME SELF-CARE Condition: Stable Instructions: Laceration (ED), Care For Your Stitches (ED) Additional Instructions: Please use medication as discussed. Please follow up with family doctor if symptoms have not improved over the next two days. Please return to the emergency room if your symptoms increase or worsen or for any other concerns. Please return to the emergency room in 8-10 days to have sutures removed. Please leave wound covered for the first 24-48 hours and then leave open to air after that time. Please use clean soap and water to clean the suture area to prevent scabbing over the top of your sutures. Please watch for any signs of infection which may include but not limited to increased pain, swelling, redness , fever or chills. Please return to the emergency room if any signs of infection do occur. Please return to the emergency room for any other concerns or complications. Prescriptions: Cephalexin [Keflex] 500 mg PO Q6HR #40 cap Referrals: Reji Lopez MD [Primary Care Provider] - 1-2 days Chuy Gruber MD [STAFF PHYSICIAN] - 1-2 days Time of Disposition: 18:28
--- NOTE | 2017-07-07 17:56 | XR ---
EXAMINATION TYPE: XR finger LT DATE OF EXAM: 07/07/2017 COMPARISON: NONE HISTORY: Laceration TECHNIQUE: 3 views FINDINGS: There is soft tissue and bone deformity involving the distal phalanx of the thumb related t o significant laceration. There is no dislocation. IP joint is intact. IMPRESSION: Fracture with laceration deformity of the midshaft of the distal phalanx of the left thum b.
[2017-07-07] MEDS ORDERED: ceFAZolin 1,000 MG VIAL IM STA (18:26)
[2017-07-07 18:48] VITALS: BP 150/78; PULSE 76; RESP 16; TEMP 98
== END 2017-07-07 18:47 | disposition home or self-care (01) ==
LOC: EC 15:51
DX: S62.522B Displaced fracture of distal phalanx of left thumb, initial encounter for open fracture (principal); I48.91 Unspecified atrial fibrillation; I25.10 Atherosclerotic heart disease of native coronary artery without angina pectoris; E78.5 Hyperlipidemia, unspecified; I10 Essential (primary) hypertension; Z88.8 Allergy status to other drugs, medicaments and biological substances; Z79.82 Long term (current) use of aspirin; Z79.01 Long term (current) use of anticoagulants; Z79.899 Other long term (current) drug therapy; W26.9XXA Contact with unspecified sharp object(s), initial encounter
CPT/HCPCS: 73140; 99283; 96372; 12002; J0690

== ENCOUNTER 2017-07-11 23:56 | Emergency (ER) | payer MEDICARE, BC ==
--- NOTE | 2017-07-12 00:30 | ED ---
General Adult HPI - General Source: patient, RN notes reviewed Mode of arrival: ambulatory Limitations: no limitations <Indio Steinberg - Last Filed: 07/12/17 00:27> <Angel Macdonald - Last Filed: 07/12/17 02:37> - General Chief complaint: Abdominal Pain Stated complaint: Stomach Pain/Constipation Time Seen by Provider: 07/12/17 00:11 - History of Present Illness Initial comments: 86 yo male presents with a 2 day history of lower abdominal pain. Pain is bilateral. Sharp and crampy in nature. Pain is minimal at the time of evaluation. States his last bowel movement was 5 days ago. He has been passing gas throughout the day today. No nausea or vomiting. No fever or chills. No chest pain or shortness of breath. No upper abdominal pain. No history of diarrhea. (Indio Steinberg) - Related Data Home Medications Medication Instructions Recorded Confirmed Aspirin 81 mg PO QAM 04/15/16 02/16/17 Enalapril Maleate [Vasotec] 2.5 mg PO QAM 04/15/16 02/16/17 Furosemide [Lasix] 20 mg PO DAILY@1200 04/15/16 02/16/17 Potassium Chloride [Klor-Con 10] 10 meq PO QAM 04/15/16 02/16/17 Simvastatin [Zocor] 40 mg PO HS 04/15/16 02/16/17 Tamsulosin [Flomax] 0.4 mg PO HS 04/15/16 02/16/17 Warfarin [Coumadin] 2.5 mg PO MOWEFR 04/15/16 02/16/17 Warfarin [Coumadin] 5 mg PO SUTUTHSA 04/15/16 02/16/17 Vit C/E/Zn/Coppr/Lutein/Zeaxan 1 cap PO BID 02/16/17 02/16/17 [Preservision Areds 2 Softgel] Previous Rx's Medication Instructions Recorded Amoxicillin 500 mg PO Q8H #30 capsule 02/19/17 Cephalexin [Keflex] 500 mg PO Q6HR #40 cap 07/07/17 Allergies Allergy/AdvReac Type Severity Reaction Status Date / Time lorazepam [From Ativan] AdvReac Hallucinati Verified 07/12/17 00:00 ons zolpidem [From Ambien] AdvReac Hallucinati Verified 07/12/17 00:00 ons Review of Systems ROS Other: All systems not noted in ROS Statement are negative. <Indio Steinberg - Last Filed: 07/12/17 00:27> ROS Other: All systems not noted in ROS Statement are negative. <Jose JuanskipAngel Shorty - Last Filed: 07/12/17 02:37> ROS Statement: Those systems with pertinent positive or pertinent negative responses have been documented in the HPI. Past Medical History Past Medical History: Atrial Fibrillation, Coronary Artery Disease (CAD), Hyperlipidemia, Hypertension, Myocardial Infarction ([place]), Prostate Disorder Additional Past Medical History / Comment(s): Sleep apnea, no cpap, macular degeneration of right eye, blind L eye. Last Myocardial Infarction Date:: 2006 History of Any Multi-Drug Resistant Organisms: None Reported Past Surgical History: Cardiac Valve Replacement, Coronary Bypass/CABG, Heart Catheterization Additional Past Surgical History / Comment(s): 2006 - CABG - triple, aortic valve replaced, Loop procedure on 06-18-16. Past Anesthesia/Blood Transfusion Reactions: No Reported Reaction Past Psychological History: No Psychological Hx Reported Smoking Status: Never smoker Past Alcohol Use History: Daily Past Drug Use History: None Reported - Past Family History Mother Family Medical History: Cancer Additional Family Medical History / Comment(s): breast cancer at 62 Father Additional Family Medical History / Comment(s): old age at 82 <Indio Steinberg - Last Filed: 07/12/17 00:27> General Exam Limitations: no limitations General appearance: alert, in no apparent distress Head exam: Present: atraumatic, normocephalic Eye exam: Present: normal appearance, PERRL ENT exam: Present: normal exam, mucous membranes moist Neck exam: Present: normal inspection. Absent: tenderness, meningismus Respiratory exam: Present: normal lung sounds bilaterally. Absent: respiratory distress Cardiovascular Exam: Present: regular rate, normal rhythm GI/Abdominal exam: Present: soft, distended, tenderness (Suprapubic), normal bowel sounds. Absent: guarding, rebound Extremities exam: Present: pedal edema, other (Chronic venous stasis) Neurological exam: Present: alert, oriented X3, CN II-XII intact. Absent: motor sensory deficit Psychiatric exam: Present: normal affect, normal mood Skin exam: Present: warm, dry, intact. Absent: cyanosis, diaphoretic <Indio Steinberg - Last Filed: 07/12/17 00:27> Course <Indio Steinberg - Last Filed: 07/12/17 00:27> <Angel Macdonald - Last Filed: 07/12/17 02:37> Vital Signs 07/11/17 23:58 Temperature 98.4 F Pulse Rate 69 Respiratory 20 Rate Blood Pressure 165/73 O2 Sat by Pulse 93 L Oximetry - Reevaluation(s) Reevaluation #1: 07/12/17 00:29 Patient's care is signed out to the oncoming physician Dr. Macdonald, laboratory studies and abdominal x-ray pending. (Indio Steinberg) Medical Decision Making - Lab Data Result diagrams: 07/12/17 00:50 07/12/17 00:50 <Angel Macdonald - Last Filed: 07/12/17 02:37> - Lab Data Lab Results 07/12/17 07/12/17 07/12/17 Range/Units 00:50 00:50 00:50 WBC 10.0 (3.8-10.6) k/uL RBC 4.51 (4.30-5.90) m/uL Hgb 14.2 (13.0-17.5) gm/dL Hct 42.4 (39.0-53.0) % MCV 94.2 (80.0-100.0) fL MCH 31.5 (25.0-35.0) pg MCHC 33.4 (31.0-37.0) g/dL RDW 14.1 (11.5-15.5) % Plt Count 211 (150-450) k/uL Neutrophils % 88 % Lymphocytes % 5 % Monocytes % 5 % Eosinophils % 1 % Basophils % 0 % Neutrophils # 8.7 H (1.3-7.7) k/uL Lymphocytes # 0.5 L (1.0-4.8) k/uL Monocytes # 0.5 (0-1.0) k/uL Eosinophils # 0.1 (0-0.7) k/uL Basophils # 0.0 (0-0.2) k/uL Sodium 135 L (137-145) mmol/L Potassium 4.8 (3.5-5.1) mmol/L Chloride 103 (98-107) mmol/L Carbon Dioxide 24 (22-30) mmol/L Anion Gap 8 mmol/L BUN 24 H (9-20) mg/dL Creatinine 0.90 (0.66-1.25) mg/dL Est GFR (MDRD) Af Amer >60 (>60 ml/min/1.73 sqM) Est GFR (MDRD) Non-Af >60 (>60 ml/min/1.73 sqM) Glucose 138 H (74-99) mg/dL Plasma Lactic Acid Jorge 1.1 (0.7-2.0) mmol/L Calcium 8.9 (8.4-10.2) mg/dL Total Bilirubin 1.1 (0.2-1.3) mg/dL AST 36 (17-59) U/L ALT 38 (21-72) U/L Alkaline Phosphatase 85 (38-126) U/L Total Protein 7.1 (6.3-8.2) g/dL Albumin 4.1 (3.5-5.0) g/dL Amylase 32 (30-110) U/L Lipase 88 (23-300) U/L Urine Color Urine Appearance (Clear) Urine pH (5.0-8.0) Ur Specific [place] (1.001-1.035) Urine Protein (Negative) Urine Glucose (UA) (Negative) Urine Ketones (Negative) Urine Blood (Negative) Urine Nitrite (Negative) Urine Bilirubin (Negative) Urine Urobilinogen (<2.0) mg/dL Ur Leukocyte Esterase (Negative) Urine RBC (0-5) /hpf Urine WBC (0-5) /hpf Hyaline Casts (0-2) /lpf Urine Mucus (None) /hpf 07/12/17 Range/Units 00:50 WBC (3.8-10.6) k/uL RBC (4.30-5.90) m/uL Hgb (13.0-17.5) gm/dL Hct (39.0-53.0) % MCV (80.0-100.0) fL MCH (25.0-35.0) pg MCHC (31.0-37.0) g/dL RDW (11.5-15.5) % Plt Count (150-450) k/uL Neutrophils % % Lymphocytes % % Monocytes % % Eosinophils % % Basophils % % Neutrophils # (1.3-7.7) k/uL Lymphocytes # (1.0-4.8) k/uL Monocytes # (0-1.0) k/uL Eosinophils # (0-0.7) k/uL Basophils # (0-0.2) k/uL Sodium (137-145) mmol/L Potassium (3.5-5.1) mmol/L Chloride (98-107) mmol/L Carbon Dioxide (22-30) mmol/L Anion Gap mmol/L BUN (9-20) mg/dL Creatinine (0.66-1.25) mg/dL Est GFR (MDRD) Af Amer (>60 ml/min/1.73 sqM) Est GFR (MDRD) Non-Af (>60 ml/min/1.73 sqM) Glucose (74-99) mg/dL Plasma Lactic Acid Jorge (0.7-2.0) mmol/L Calcium (8.4-10.2) mg/dL Total Bilirubin (0.2-1.3) mg/dL AST (17-59) U/L ALT (21-72) U/L Alkaline Phosphatase (38-126) U/L Total Protein (6.3-8.2) g/dL Albumin (3.5-5.0) g/dL Amylase (30-110) U/L Lipase (23-300) U/L Urine Color Yellow Urine Appearance Clear (Clear) Urine pH 5.0 (5.0-8.0) Ur Specific [place] 1.012 (1.001-1.035) Urine Protein Negative (Negative) Urine Glucose (UA) Negative (Negative) Urine Ketones Negative (Negative) Urine Blood Small H (Negative) Urine Nitrite Negative (Negative) Urine Bilirubin Negative (Negative) Urine Urobilinogen <2.0 (<2.0) mg/dL Ur Leukocyte Esterase Negative (Negative) Urine RBC 9 H (0-5) /hpf Urine WBC <1 (0-5) /hpf Hyaline Casts 8 H (0-2) /lpf Urine Mucus Rare H (None) /hpf Disposition <Indio Steinberg - Last Filed: 07/12/17 00:27> <Angel Macdonald - Last Filed: 07/12/17 02:37> Clinical Impression: Constipation, Abdominal pain Disposition: HOME SELF-CARE Condition: Good Instructions: Constipation (ED) Referrals: Reji Lopez MD [Primary Care Provider] - 1-2 days
[2017-07-12 01:05] LABS: Basophils % (A) 0 %; CH 31.7; CHCM 33.8; Eosinophils # (A) 0.1 k/uL (0-0.7); Eosinophils % (A) 1 %; HCT 42.4 % (39.0-53.0); HDW 2.33; HGB 14.2 gm/dL (13.0-17.5); Luc # (Auto) 0.13; Luc % (Auto) 1; Lymphocytes # (A) 0.5 k/uL (1.0-4.8); Lymphocytes % (A) 5 %; MCH 31.5 pg (25.0-35.0); MCHC 33.4 g/dL (31.0-37.0); MCV 94.2 fL (80.0-100.0); Monocytes # (A) 0.5 k/uL (0-1.0); Monocytes % (A) 5 %; Neutrophils # (A) 8.7 k/uL (1.3-7.7); Neutrophils % (A) 88 %; RBC 4.51 m/uL (4.30-5.90); RDW 14.1 % (11.5-15.5)
[2017-07-12 01:08] LABS: Appearance,Urine Clear (Clear); Bilirubin,Urine Negative (Negative); Glucose,Urine (UA) Negative (Negative); Ketones,Urine Negative (Negative); Leukocyte Esterase,Urine Negative (Negative); Mucus,Urine Rare /hpf; Nitrite,Urine Negative (Negative); Particle Count 1060; Protein,Urine Negative (Negative); RBC,Urine 9 /hpf (0-5); Specific Gravity,Urine 1.012 (1.001-1.035); UA Billing (MACRO vs. MICRO) MICRO; Urobilinogen,Urine <2.0 mg/dL (<2.0); WBC,Urine <1 /hpf (0-5)
[2017-07-12 01:12] LABS: ALT 38 U/L (21-72); AST 36 U/L (17-59); Alkaline Phosphatase 85 U/L (38-126); Amylase 32 U/L (30-110); Anion Gap 8 mmol/L; Blood Urea Nitrogen 24 mg/dL (9-20); Calcium 8.9 mg/dL (8.4-10.2); Carbon Dioxide 24 mmol/L (22-30); Chloride 103 mmol/L (98-107); Glucose 138 mg/dL (74-99); Non-African American GFR(MDRD) >60 (>60 ml/min/1.73 sqM); Potassium 4.8 mmol/L (3.5-5.1); Sodium 135 mmol/L (137-145); Total Bilirubin 1.1 mg/dL (0.2-1.3); Total Protein 7.1 g/dL (6.3-8.2)
--- NOTE | 2017-07-12 01:13 | XR ---
EXAM: XR Abdomen, 1 View CLINICAL HISTORY: Reason: abdominal pain. Constipation for 5 days. TECHNIQUE: Frontal upright view of the abdomen/pelvis. COMPARISON: No relevant prior studies available. FINDINGS: Gaseous distention of the colon and small bowel loops. No definite small bowel dilatation; however, there is significant overlap noted in the upper quadrants. Left base pulmonary patchy opacities noted. No organomegaly or soft tissue mass. No abnormal abdominal calcifications. Osseous structures are intact. IMPRESSION: Significant gaseous distention of colon and small bowel loops. Findings most likely represent ileus; however, low-grade partial small bowel obstruction is not excluded. Correlate clinically. Need for short interval serial abdominal x-rays may be determined as clinically warranted.
[2017-07-12] MEDS ORDERED: RX INFO: IV CONTRAST WAS GIVEN 1 EACH MISC MISCELLANE PRN (01:21)
[2017-07-12] MEDS ORDERED: SODIUM CHLORIDE 0.9% 1,000 ML IV STA ×2 (01:21)
--- NOTE | 2017-07-12 02:05 | CT ---
EXAM: CT Abdomen and Pelvis With Intravenous Contrast CLINICAL HISTORY: Reason: Pain TECHNIQUE: Axial computed tomography images of the abdomen and pelvis with intravenous contrast. DLP is 1143.20 mGy-cm. This CT exam was performed using one or more of the following dose reduction techniques: automated exposure control, adjustment of the mA and/or kV according to patient size, and/or use of iterative reconstruction technique. COMPARISON: No relevant prior studies available. FINDINGS: Liver, gallbladder, spleen, pancreas, and both adrenal glands are normal. The right kidney contains a 2.4 cm cortical cyst in the upper pole and a 4.1 cm cortical cyst in the midpole. No evidence of hydronephrosis in either kidney. Urinary bladder is normal. There is significant gaseous distention of the colon. There is interposition of distended colonic loops into the right upper quadrant and under the right hemidiaphragm. Small amount of free fluid is seen in the right upper quadrant and right lower quadrant. There is a focal tapering of the sigmoid colon at the rectosigmoid junction (series 3 image 60). The appendix is not definitely seen. No evidence of small bowel obstruction. Osseous structures are intact. 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 IMPRESSION: Significant gaseous distention of the colon with interposition of distended colonic loops under the right hemidiaphragm. No there is a focal tapering of the sigmoid colon at the rectosigmoid junction; however, there is no other tapered or twisted point in the colon. Findings are most suggestive of colonic ileus. Sigmoid volvulus is felt to be less likely but is not entirely excluded. Small amounts of free fluid were noted in the right upper quadrant and right lower quadrant. [employer] 07/12/17 02:09 Call Doctor Regarding Volvulus, called Dr. Macdonald
[2017-07-12] MEDS ORDERED: SENNOSIDES-DOCUSATE SODIUM 1 EACH TAB PO STA (02:37)
[2017-07-12] MEDS ORDERED: MAGNESIUM CITRATE 296 ML BOTTLE PO ONE (02:37)
[2017-07-12 03:33] VITALS: BP 125/58; PULSE 90; RESP 18; TEMP 97.9
== END 2017-07-12 03:33 | disposition home or self-care (01) ==
LOC: EC 23:56
DX: K59.00 Constipation, unspecified (principal); I48.91 Unspecified atrial fibrillation; I25.10 Atherosclerotic heart disease of native coronary artery without angina pectoris; E78.5 Hyperlipidemia, unspecified; I10 Essential (primary) hypertension; Z88.8 Allergy status to other drugs, medicaments and biological substances; Z79.82 Long term (current) use of aspirin; Z79.01 Long term (current) use of anticoagulants; Z79.899 Other long term (current) drug therapy
CPT/HCPCS: 36415; 80053; 82150; 83605; 83690; 85025; 81001; 87086; 74000; 74177; 99284; 96360; Q9967

== ENCOUNTER 2018-03-18 02:05 | Emergency (ER) | payer MEDICARE, BC ==
[2018-03-18] MEDS ORDERED: ONDANSETRON 4 MG/2 ML VIAL IVP STA (02:31)
[2018-03-18] MEDS ORDERED: SODIUM CHLORIDE 0.9% 500 ML IV STA ×2 (02:31→06:42)
--- NOTE | 2018-03-18 02:33 | ED ---
Abdominal Pain HPI <Angel Macdonald - Last Filed: 03/18/18 07:45> - General Source: patient, family Mode of arrival: ambulatory Limitations: no limitations <Linda Keith - Last Filed: 03/18/18 17:12> - General Chief Complaint: Abdominal Pain Stated Complaint: Abdominal Pain, Constipation Time Seen by Provider: 03/18/18 02:20 - History of Present Illness Initial Comments: 87-year-old male patient presents to the emergency department today for complaints of diffuse abdominal pain and bloating. Patient states that pain started early this morning. He states that he has not had a bowel movement for the last 3 days and thinks this may be contributing. Patient states that the pain waxes and wanes. States that he has been nauseated but has not vomited. He denies any difficulty with urination. Denies any fevers or chills with this. Denies any history of abdominal surgeries. Patient denies any recent rash , shortness breath, chest pain, back pain, numbness, tingling, dizziness, weakness, hematuria, dysuria, urinary urgency, urinary frequency, headache, visual changes, or any other complaints. (Linda Keith) - Related Data Home Medications Medication Instructions Recorded Confirmed Aspirin 81 mg PO QAM 04/15/16 03/18/18 Enalapril Maleate [Vasotec] 2.5 mg PO QAM 04/15/16 03/18/18 Furosemide [Lasix] 30 mg PO AC-BID 04/15/16 03/18/18 Potassium Chloride [Klor-Con 10] 10 meq PO QAM 04/15/16 03/18/18 Simvastatin [Zocor] 40 mg PO HS 04/15/16 03/18/18 Tamsulosin [Flomax] 0.4 mg PO HS 04/15/16 03/18/18 Warfarin [Coumadin] 2.5 mg PO MOWEFR 04/15/16 03/18/18 Warfarin [Coumadin] 5 mg PO SUTUTHSA 04/15/16 03/18/18 Vit C/E/Zn/Coppr/Lutein/Zeaxan 1 cap PO BID 02/16/17 03/18/18 [Preservision Areds 2 Softgel] Previous Rx's Medication Instructions Recorded Amoxicillin 500 mg PO Q8H #30 capsule 02/19/17 Cephalexin [Keflex] 500 mg PO Q6HR #40 cap 07/07/17 Dicyclomine [Bentyl] 20 mg PO QID #40 tablet 03/18/18 Naproxen [Naprosyn] 250 mg PO BID #30 tab 03/18/18 Polyethylene Glycol 3350 [Miralax] 17 gm PO DAILY #30 packet 03/18/18 Allergies Allergy/AdvReac Type Severity Reaction Status Date / Time lorazepam [From Ativan] AdvReac Hallucinati Verified 03/18/18 06:55 ons zolpidem [From Ambien] AdvReac Hallucinati Verified 03/18/18 06:55 ons Review of Systems ROS Other: All systems not noted in ROS Statement are negative. <Angel Macdonald - Last Filed: 03/18/18 07:45> ROS Other: All systems not noted in ROS Statement are negative. <Linda Keith - Last Filed: 03/18/18 17:12> ROS Statement: Those systems with pertinent positive or pertinent negative responses have been documented in the HPI. Past Medical History Past Medical History: Atrial Fibrillation, Coronary Artery Disease (CAD), Hyperlipidemia, Hypertension, Myocardial Infarction ([place]), Prostate Disorder Additional Past Medical History / Comment(s): Sleep apnea, no cpap, macular degeneration of right eye, blind L eye. Last Myocardial Infarction Date:: 2006 History of Any Multi-Drug Resistant Organisms: None Reported Past Surgical History: Cardiac Valve Replacement, Coronary Bypass/CABG, Heart Catheterization Additional Past Surgical History / Comment(s): 2006 - CABG - triple, aortic valve replaced, Loop procedure on 06-18-16. Past Anesthesia/Blood Transfusion Reactions: No Reported Reaction Past Psychological History: No Psychological Hx Reported Smoking Status: Never smoker Past Alcohol Use History: Daily Past Drug Use History: None Reported - Past Family History Mother Family Medical History: Cancer Additional Family Medical History / Comment(s): breast cancer at 62 Father Additional Family Medical History / Comment(s): old age at 82 <Linda Keith - Last Filed: 03/18/18 17:12> General Exam Limitations: no limitations General appearance: alert, in no apparent distress, other (This is a well- developed, well-nourished adult male patient in no acute distress. Vital signs upon presentation are temperature 98.3F, pulse 63, respirations 20, blood pressure 124/71, pulse ox 95% on room air.) Eye exam: Present: normal appearance, PERRL, EOMI. Absent: scleral icterus, conjunctival injection, periorbital swelling ENT exam: Present: normal exam, normal oropharynx, mucous membranes moist Respiratory exam: Present: normal lung sounds bilaterally. Absent: respiratory distress, wheezes, rales, rhonchi, stridor Cardiovascular Exam: Present: regular rate, normal rhythm, normal heart sounds. Absent: systolic murmur, diastolic murmur, rubs, gallop, clicks GI/Abdominal exam: Present: soft, distended (Upper abdominal distention), tenderness (Generalized upper abdominal tenderness), normal bowel sounds, other (Tympani noted to abdominal percussion.). Absent: guarding, rebound, rigid Neurological exam: Present: alert, oriented X3, CN II-XII intact Psychiatric exam: Present: normal affect, normal mood Skin exam: Present: warm, dry, intact, normal color. Absent: rash <Linda Keith - Last Filed: 03/18/18 17:12> Vital Signs 03/18/18 03/18/18 03/18/18 02:10 04:01 08:04 Temperature 98.3 F 98.2 F Pulse Rate 63 63 66 Respiratory 20 18 18 Rate Blood Pressure 124/71 132/94 130/60 O2 Sat by Pulse 95 90 L 95 Oximetry Medical Decision Making - Lab Data Result diagrams: 03/18/18 02:45 03/18/18 02:45 <Angel Macdonald - Last Filed: 03/18/18 07:45> - Lab Data Result diagrams: 03/18/18 02:45 03/18/18 02:45 - Radiology Data Radiology results: report reviewed, image reviewed <Linda Keith - Last Filed: 03/18/18 17:12> - Medical Decision Making 87 year-old male patient presented to the emergency department today for evaluation of abdominal pain and constipation 3 days. Physical examination did reveal a grossly distended upper abdomen. Labs reviewed and are relatively unremarkable. Did perform x-ray of the abdomen which did show a dilated bowel, CT of the abdomen and pelvis was obtained and did show redemonstrated bowel dilation which they feel is related to chronic ileus. Very similar to previous exams. Patient was given a glycerin suppository. Care is handed over to my attending Dr. Macdonald at 0450 who will manage care until discharge. (Linda Keith) - Lab Data Lab Results 03/18/18 03/18/18 Range/Units 02:45 02:45 WBC 9.0 (3.8-10.6) k/uL RBC 4.48 (4.30-5.90) m/uL Hgb 13.9 (13.0-17.5) gm/dL Hct 41.2 (39.0-53.0) % MCV 91.9 (80.0-100.0) fL MCH 30.9 (25.0-35.0) pg MCHC 33.7 (31.0-37.0) g/dL RDW 14.4 (11.5-15.5) % Plt Count 190 (150-450) k/uL Neutrophils % 87 % Lymphocytes % 6 % Monocytes % 6 % Eosinophils % 1 % Basophils % 0 % Neutrophils # 7.8 H (1.3-7.7) k/uL Lymphocytes # 0.5 L (1.0-4.8) k/uL Monocytes # 0.5 (0-1.0) k/uL Eosinophils # 0.1 (0-0.7) k/uL Basophils # 0.0 (0-0.2) k/uL Sodium 135 L (137-145) mmol/L Potassium 4.3 (3.5-5.1) mmol/L Chloride 98 (98-107) mmol/L Carbon Dioxide 24 (22-30) mmol/L Anion Gap 13 mmol/L BUN 36 H (9-20) mg/dL Creatinine 1.00 (0.66-1.25) mg/dL Est GFR (CKD-EPI)AfAm 77 (>60 ml/min/1.73 sqM) Est GFR (CKD-EPI)NonAf 67 (>60 ml/min/1.73 sqM) Glucose 138 H (74-99) mg/dL Calcium 9.2 (8.4-10.2) mg/dL Total Bilirubin 1.0 (0.2-1.3) mg/dL AST 32 (17-59) U/L ALT 45 (21-72) U/L Alkaline Phosphatase 60 (38-126) U/L Total Protein 6.9 (6.3-8.2) g/dL Albumin 4.3 (3.5-5.0) g/dL Amylase 53 (30-110) U/L Lipase 116 (23-300) U/L - Radiology Data One view x-ray of the abdomen is obtained. Report was reviewed in its entirety. Impression by Dr. Sharif shows stable gaseous distention of the colon and small bowel loops likely representing chronic ileus. CT abdomen and pelvis was obtained. Contrast was administered. Impression by Dr. Sharif stable to slightly increased gaseous distention of the colon. Findings most consistent with chronic ileus. Focal tapering of the distal end of the sigmoid colon is redemonstrated. Possibility of stricture other restrictive lesion is not excluded. (Linda Keith) Disposition Is patient prescribed a controlled substance at d/c from ED?: No <Angel Macdonald - Last Filed: 03/18/18 07:45> Is patient prescribed a controlled substance at d/c from ED?: No <Linda Keith - Last Filed: 03/18/18 17:12> Clinical Impression: Abdominal pain, Chronic duodenal ileus Disposition: HOME SELF-CARE Condition: Good Instructions: Abdominal Pain (ED) Prescriptions: Dicyclomine [Bentyl] 20 mg PO QID #40 tablet Naproxen [Naprosyn] 250 mg PO BID #30 tab Polyethylene Glycol 3350 [Miralax] 17 gm PO DAILY #30 packet Referrals: Reji Lopez MD [Primary Care Provider] - 1-2 days
[2018-03-18 02:59] LABS: Basophils % (A) 0 %; Eosinophils # (A) 0.1 k/uL (0-0.7); Eosinophils % (A) 1 %; HCT 41.2 % (39.0-53.0); HGB 13.9 gm/dL (13.0-17.5); Lymphocytes # (A) 0.5 k/uL (1.0-4.8); Lymphocytes % (A) 6 %; MCH 30.9 pg (25.0-35.0); MCHC 33.7 g/dL (31.0-37.0); MCV 91.9 fL (80.0-100.0); Mean Platelet Volume 6.9; Monocytes # (A) 0.5 k/uL (0-1.0); Monocytes % (A) 6 %; Neutrophils # (A) 7.8 k/uL (1.3-7.7); Neutrophils % (A) 87 %; Platelet Count 190 k/uL (150-450); RBC 4.48 m/uL (4.30-5.90); RDW 14.4 % (11.5-15.5)
[2018-03-18 03:08] LABS: Albumin 4.3 g/dL (3.5-5.0); Calcium 9.2 mg/dL (8.4-10.2); Potassium 4.3 mmol/L (3.5-5.1); Total Protein 6.9 g/dL (6.3-8.2)
[2018-03-18] MEDS ORDERED: RX INFO: IV CONTRAST WAS GIVEN 1 EACH MISC MISCELLANE PRN (03:12)
--- NOTE | 2018-03-18 03:22 | XR ---
EXAM: XR Abdomen, 1 View CLINICAL HISTORY: ITS.REASON XR Reason: abdominal pain TECHNIQUE: Frontal supine view of the abdomen/pelvis. COMPARISON: 07/12/17 FINDINGS: Stable gaseous distention of colon and small bowel loops. No significant change. IMPRESSION: Stable gaseous distention of colon and small bowel loops likely representing chronic ileus.
[2018-03-18 04:02] VITALS: RESP 18
--- NOTE | 2018-03-18 04:18 | CT ---
EXAM: CT Abdomen and Pelvis With Intravenous Contrast CLINICAL HISTORY: ITS.REASON CT Reason: Pain TECHNIQUE: Axial computed tomography images of the abdomen and pelvis with intravenous contrast. DLP is 1157.40 mGy-cm. This CT exam was performed using one or more of the following dose reduction techniques: automated exposure control, adjustment of the mA and/or kV according to patient size, and/or use of iterative reconstruction technique. COMPARISON: 07/12/17 FINDINGS: Lung bases: Unremarkable. No mass. No consolidation. ABDOMEN: Liver: Unremarkable. No mass. Gallbladder and bile ducts: Unremarkable. No calcified stones. No ductal dilation. Pancreas: Unremarkable. No mass. No ductal dilation. Spleen: Unremarkable. No splenomegaly. Adrenals: Unremarkable. No mass. Kidneys and ureters: Stable cysts in the right kidney. No hydronephrosis. Stomach and bowel: Stable to slightly increased gaseous distention of the colon. Interposition of colonic loops in the right upper quadrant redemonstrated. Focal tapering of the distal end of the sigmoid colon redemonstrated. PELVIS: Appendix: Appendix is not visualized. Bladder: Unremarkable. No mass. Reproductive: Unremarkable as visualized. ABDOMEN and PELVIS: Intraperitoneal space: Small amount of fluid redemonstrated in the right lower quadrant. No free air. Bones/joints: No acute fracture. No dislocation. Soft tissues: Unremarkable. Vasculature: Unremarkable. No abdominal aortic aneurysm. Lymph nodes: Unremarkable. No enlarged lymph nodes. IMPRESSION: Stable to slightly increased gaseous distention of the colon. Findings most consistent with chronic ileus. Focal tapering of the distal end of the sigmoid colon is redemonstrated. Possibility of stricture or other restrictive lesion not excluded.
[2018-03-18] MEDS ORDERED: MORPHINE SULFATE 4 MG/ML SYRINGE IVP STA ×2 (04:35→06:10)
[2018-03-18] MEDS ORDERED: GLYCERIN ADULT SUPPOSITORY 1 EACH RECTAL STA (04:35)
[2018-03-18] MEDS ORDERED: SODIUM CHLORIDE 0.9% 500 ML IV ONE (04:39)
[2018-03-18] MEDS ORDERED: DICYCLOMINE 10 MG/ML 2 ML AMP IM STA (06:42)
[2018-03-18] MEDS ORDERED: KETOROLAC 30 MG/ML 1 ML VIAL IVP STA (06:42)
[2018-03-18] MEDS ORDERED: SENNOSIDES-DOCUSATE SODIUM 1 EACH TAB PO STA (06:42)
[2018-03-18 08:06] VITALS: BP 130/60; PULSE 66; TEMP 98.2
== END 2018-03-18 08:01 | disposition home or self-care (01) ==
LOC: EC 02:05
DX: K31.5 Obstruction of duodenum (principal); K59.00 Constipation, unspecified; E78.5 Hyperlipidemia, unspecified; I48.91 Unspecified atrial fibrillation; I25.10 Atherosclerotic heart disease of native coronary artery without angina pectoris; I10 Essential (primary) hypertension; N42.9 Disorder of prostate, unspecified; H54.62 Unqualified visual loss, left eye, normal vision right eye; Z79.01 Long term (current) use of anticoagulants; Z79.82 Long term (current) use of aspirin; Z79.899 Other long term (current) drug therapy; Z88.8 Allergy status to other drugs, medicaments and biological substances
CPT/HCPCS: 36415; 80053; 82150; 83690; 85025; 74018; 74177; 99284; 96374; 96375 ×2; 96376; 96361 ×3; 96372; J2270; J0500; J2405; J1885; Q9967

== ENCOUNTER 2018-03-20 13:45 | Inpatient (IN) | payer MEDICARE, BC ==
[2018-03-20] MEDS ORDERED: SODIUM CHLORIDE 0.9% 1,000 ML IV STA (14:27)
[2018-03-20] MEDS ORDERED: NA PHOS,M-B/NA PHOS,DI-BA 133 ML ENEMA RECTAL STA (14:29)
[2018-03-20 14:55] LABS: Basophils % (A) 1 %; Eosinophils # (A) 0.1 k/uL (0-0.7); Eosinophils % (A) 1 %; HCT 40.3 % (39.0-53.0); HGB 13.5 gm/dL (13.0-17.5); Lymphocytes # (A) 0.5 k/uL (1.0-4.8); Lymphocytes % (A) 6 %; MCH 30.9 pg (25.0-35.0); MCHC 33.5 g/dL (31.0-37.0); MCV 92.2 fL (80.0-100.0); Mean Platelet Volume 6.8; Monocytes # (A) 0.6 k/uL (0-1.0); Monocytes % (A) 7 %; Neutrophils # (A) 6.7 k/uL (1.3-7.7); Neutrophils % (A) 84 %; Platelet Count 187 k/uL (150-450); RBC 4.37 m/uL (4.30-5.90); RDW 14.6 % (11.5-15.5); WBC 8.1 k/uL (3.8-10.6)
[2018-03-20 15:12] LABS: Albumin 3.8 g/dL (3.5-5.0); Calcium 8.9 mg/dL (8.4-10.2); Potassium 4.1 mmol/L (3.5-5.1); Total Protein 6.3 g/dL (6.3-8.2)
[2018-03-20 15:32] LABS: C Reactive Protein 5.7 mg/L (<10.0)
--- NOTE | 2018-03-20 15:33 | XR ---
EXAMINATION TYPE: XR KUB DATE OF EXAM: 03/20/2018 3:06 PM CLINICAL HISTORY: Abdominal pain and constipation. TECHNIQUE: Single upright image of the abdomen is obtained. COMPARISON: 03/18/2018 and 07/12/2017 FINDINGS: The exam is unchanged from the prior 03/18/2018 and 07/12/2017 there is redemonstration of ma rked enlargement of the right hemicolon measuring up to 12.3 cm. Stool is noted within the descending colon. Small bowel loops are prominent but nondilated. No pneumoperitoneum is appreciated. Degenerat dede changes are seen of the osseous structures. No abnormal calcification is noted. IMPRESSION: Unchanged extensive colonic gaseous dilation comparison to the exam of 03/18/2018, similar to the exam of 07/12/2017. 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
--- NOTE | 2018-03-20 15:45 | ED ---
Abdominal Pain HPI - General Chief Complaint: Abdominal Pain Stated Complaint: Constipated Time Seen by Provider: 03/20/18 14:16 Source: patient Mode of arrival: ambulatory Limitations: no limitations - History of Present Illness Initial Comments: 87 years old male was seen in ER 2 days ago he said his belly seems distended and he hasn't moved his bowels yesterday or today he is nauseous no vomiting he was seen in ER he had a blood work done as well as CT of the abdomen CT reports were reviewed but since then his weight his belly has been distended - Related Data Home Medications Medication Instructions Recorded Confirmed Aspirin 81 mg PO QAM 04/15/16 03/20/18 Enalapril Maleate [Vasotec] 2.5 mg PO QAM 04/15/16 03/20/18 Furosemide [Lasix] 30 mg PO AC-BID 04/15/16 03/20/18 Potassium Chloride [Klor-Con 10] 10 meq PO QAM 04/15/16 03/20/18 Simvastatin [Zocor] 40 mg PO HS 04/15/16 03/20/18 Tamsulosin [Flomax] 0.4 mg PO HS 04/15/16 03/20/18 Warfarin [Coumadin] 2.5 mg PO MOWEFR 04/15/16 03/20/18 Warfarin [Coumadin] 5 mg PO SUTUTHSA 04/15/16 03/20/18 Vit C/E/Zn/Coppr/Lutein/Zeaxan 1 cap PO BID 02/16/17 03/20/18 [Preservision Areds 2 Softgel] Allergies Allergy/AdvReac Type Severity Reaction Status Date / Time lorazepam [From Ativan] AdvReac Hallucinati Verified 03/20/18 14:13 ons zolpidem [From Ambien] AdvReac Hallucinati Verified 03/20/18 14:13 ons Review of Systems ROS Statement: Those systems with pertinent positive or pertinent negative responses have been documented in the HPI. ROS Other: All systems not noted in ROS Statement are negative. Past Medical History Past Medical History: Atrial Fibrillation, Coronary Artery Disease (CAD), Hyperlipidemia, Hypertension, Myocardial Infarction ([place]), Prostate Disorder Additional Past Medical History / Comment(s): Sleep apnea, no cpap, macular degeneration of right eye, blind L eye. Last Myocardial Infarction Date:: 2006 History of Any Multi-Drug Resistant Organisms: None Reported Past Surgical History: Cardiac Valve Replacement, Coronary Bypass/CABG, Heart Catheterization Additional Past Surgical History / Comment(s): 2006 - CABG - triple, aortic valve replaced, Loop procedure on 06-18-16. Past Anesthesia/Blood Transfusion Reactions: No Reported Reaction Past Psychological History: No Psychological Hx Reported Smoking Status: Never smoker Past Alcohol Use History: Occasional Past Drug Use History: None Reported - Past Family History Mother Family Medical History: Cancer Additional Family Medical History / Comment(s): breast cancer at 62 Father Additional Family Medical History / Comment(s): old age at 82 General Exam - General Exam Comments Initial Comments: General: The patient is awake and alert, in no distress, and does not appear acutely ill. Skin: Skin is warm and dry and no rashes or lesions are noted. Eye: Pupils are equal, round and reactive to light, extra-ocular movements are intact; there is normal conjunctiva bilaterally. Ears, nose, mouth and throat: There are moist mucous membranes and no oral lesions. Neck: The neck is supple, there is no tenderness or JVD. Cardiovascular: There is a regular rate and rhythm. No murmur, rub or gallop is appreciated. Respiratory: To auscultation bilateral, no wheezing no rhonchi no distress respiratory ochoa noticed Gastrointestinal: Abdomen seems distended, bowel sounds are diminished, no focal area of tenderness noticed. Back: There is no tenderness to palpation in the midline. There is no obvious deformity. Musculoskeletal: Normal ROM, no tenderness, There is no pedal edema. There is no calf tenderness or swelling. No cords were appreciated. Neurological: CN II-XII intact, Cranial nerves III through XII are intact. There are no obvious motor or sensory deficits. Coordination appears grossly intact. Speech is normal. Psychiatric: Cooperative, appropriate mood & affect, normal judgment. Limitations: no limitations Course Vital Signs 03/20/18 03/20/18 03/20/18 14:10 16:25 17:31 Temperature 98.2 F Pulse Rate 75 86 58 L Respiratory 20 18 18 Rate Blood Pressure 132/63 146/67 124/61 O2 Sat by Pulse 93 L 92 L 93 L Oximetry There is reassessed, CBC, comp his metabolic panel are unremarkable patient is afebrile CT of the abdomen done on now March 18 was reviewed, it reveals chronic ileus KUB done today radiologist feel that it hasn't changed much from the previous imaging studies, fleets enema was done in the ER without great deal of benefit, CT pointed out to the possibility of a stricture in the colon and was spoke with the Dr. Lopez we discussed the CT findings and his inability to move his bowels we can admit him to Dr. Lopez's service and now will allow consult Dr. jones for possible colonoscopy or sigmoidoscopy Medical Decision Making - Lab Data Result diagrams: 03/20/18 14:47 03/20/18 14:47 Lab Results 03/20/18 03/20/18 Range/Units 14:47 14:47 WBC 8.1 (3.8-10.6) k/uL RBC 4.37 (4.30-5.90) m/uL Hgb 13.5 (13.0-17.5) gm/dL Hct 40.3 (39.0-53.0) % MCV 92.2 (80.0-100.0) fL MCH 30.9 (25.0-35.0) pg MCHC 33.5 (31.0-37.0) g/dL RDW 14.6 (11.5-15.5) % Plt Count 187 (150-450) k/uL Neutrophils % 84 % Lymphocytes % 6 % Monocytes % 7 % Eosinophils % 1 % Basophils % 1 % Neutrophils # 6.7 (1.3-7.7) k/uL Lymphocytes # 0.5 L (1.0-4.8) k/uL Monocytes # 0.6 (0-1.0) k/uL Eosinophils # 0.1 (0-0.7) k/uL Basophils # 0.0 (0-0.2) k/uL Sodium 135 L (137-145) mmol/L Potassium 4.1 (3.5-5.1) mmol/L Chloride 96 L (98-107) mmol/L Carbon Dioxide 26 (22-30) mmol/L Anion Gap 13 mmol/L BUN 34 H (9-20) mg/dL Creatinine 1.11 (0.66-1.25) mg/dL Est GFR (CKD-EPI)AfAm 68 (>60 ml/min/1.73 sqM) Est GFR (CKD-EPI)NonAf 59 (>60 ml/min/1.73 sqM) Glucose 129 H (74-99) mg/dL Calcium 8.9 (8.4-10.2) mg/dL Total Bilirubin 1.0 (0.2-1.3) mg/dL AST 31 (17-59) U/L ALT 40 (21-72) U/L Alkaline Phosphatase 61 (38-126) U/L C-Reactive Protein 5.7 (<10.0) mg/L Total Protein 6.3 (6.3-8.2) g/dL Albumin 3.8 (3.5-5.0) g/dL Amylase 43 (30-110) U/L Lipase 91 (23-300) U/L Disposition Clinical Impression: Abdominal pain Disposition: ADMITTED IP TO THIS HOSP Condition: Good Referrals: Reji Lopez MD [Primary Care Provider] - 1-2 days
[2018-03-20] MEDS ORDERED: NALOXONE 0.4 MG/ML 1 ML VIAL IV PRN (17:59)
[2018-03-20 18:26] LABS: INR 1.5 (<1.2); Prothrombin Time 14.3 sec (9.0-12.0)
[2018-03-20 18:28] LABS: Appearance,Urine Clear (Clear); Bilirubin,Urine Negative (Negative); Blood,Urine Negative (Negative); Color,Urine Yellow; Glucose,Urine (UA) Negative (Negative); Ketones,Urine 1+ (Negative); Leukocyte Esterase,Urine Negative (Negative); Nitrite,Urine Negative (Negative); Protein,Urine Trace (Negative); Specific Gravity,Urine 1.019 (1.001-1.035); Urobilinogen,Urine <2.0 mg/dL (<2.0)
[2018-03-20] MEDS ORDERED: ATORVASTATIN 20 MG TAB PO SCH (21:00)
[2018-03-20] MEDS: NYSTATIN 100,000UNIT/GM CREAM 30 GM TUBE TOPICAL SCH (21:01)
[2018-03-20] MEDS: TAMSULOSIN 0.4 MG CAP.ER.24H PO SCH (21:01)
[2018-03-20] MEDS: LACTULOSE 20 GM/30 ML CUP PO SCH (21:47)
[2018-03-20] MEDS ORDERED: DICYCLOMINE 20 MG TAB PO SCH (22:00)
[2018-03-21] MEDS: ACETAMINOPHEN TAB 325 MG TAB PO PRN (00:38)
[2018-03-21] MEDS ORDERED: KETOROLAC 30 MG/ML 1 ML VIAL IVP PRN (01:26)
[2018-03-21] MEDS: HYDROmorphone 0.5 MG/0.5 ML SYRINGE IVP PRN ×2 (02:13→05:13)
--- NOTE | 2018-03-21 04:22 | HP ---
HISTORY AND PHYSICAL ATTENDING PHYSICIAN: Dr. Willis Lopez. CHIEF COMPLAINT: Abdominal pain. HISTORY OF PRESENT ILLNESS: 87-year-old gentleman presents to the emergency room with complaints of abdominal distention and pain. The patient was seen 2 days ago with similar symptoms. The patient was given some enemas at the time with some relief. The patient says the symptoms are worse again. The patient was seen in the ER again. X-ray shows markedly distended right colon with about 12.3 cm. In view of this, patient is being admitted to the hospital. The patient has no associated fever, chills, nausea, vomiting. He has been eating but he has been afraid to eat much. The patient denied any other symptoms. He has no dysuria, hematuria. Has been passing flatus. Has an adequate bowel movement though. The emergency room physicians did give an enema without any success and thus the rectal examination did not reveal any stool in the rectum per the ER physician. The patient in view of this is admitted to the hospital. The patient had a CT scan of the abdomen done 2 days ago, which revealed evidence suggestive of some narrowing of the sigmoid colon. There was suggestion of gaseous distention of the colon. Findings most consistent with chronic ileus, focal tapering in the distal end of the sigmoid colon was redemonstrated. The patient has had no history of any colon CA or any diverticulitis. Last colonoscopy has been more than 10 years now. PAST MEDICAL HISTORY: Past medical history is significant for coronary artery disease and valvular heart surgery. History of pacemaker placement. Also has a history of congestive cardiac failure. The patient has had a history of VSD for which he has had previous repair and subsequent aortic valve replacement and bypass surgery. The patient also has a history of chronic atrial fibrillation, had a pacemaker placed because of complete heart block. The patient does have a history of hyperlipidemia and gout. 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 Otherwise no history of diabetes mellitus, myocardial infarction, CVA, lung disease, liver disease, kidney disease, ulcers, TB, hepatitis. No history of any rheumatic fever. No history of any myocardial infarction or CVA. The patient does have a history of chronic congestive cardiac failure. PAST SURGICAL HISTORY: Significant for left knee surgery. Hernia surgery. Tonsillectomy. Cardiac surgery x2. Cataract surgery. History of varicose veins with spontaneous bleeding. No surgical procedure was done. Patient also has had no further problems relating to that. The patient had a pacemaker placement. PERSONAL HISTORY: Nonsmoker. Alcohol none. ALLERGIES: None known. MEDICATIONS: Include enalapril 2.5 mg daily, Lasix 30 mg b.i.d., Aldactone 25 mg daily, Coumadin 5 mg 4 days a week, Flomax 0.4 mg daily, Zocor 40 mg daily, Lasix 30 mg b.i.d., aspirin 81 mg daily. Coumadin 2.5 mg Thursday, Thursday, and Thursday and 5 mg Thursday, , Thursday, Thursday, and Aldactone 25 mg daily. Apparently 2 days ago, he was placed on Bentyl 20 mg q.i.d., naproxen 250 mg b.i.d. SOCIAL HISTORY: Patient , lives with his spouse. He still does work. 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 FAMILY MEDICAL HISTORY: Has 2 daughters, 1 has a history of paroxysmal atrial fibrillation. He has a son with history of rheumatoid arthritis and a son with history of hyperlipidemia and 1 son in good health. Another daughter is in good health. Patient has a sister 90 years of age in adequate health. REVIEW OF SYSTEMS: NEURO: Denies any headaches, dizziness. No double vision or blurred vision. No symptoms of TIA, syncope, or seizures. Psych: No anxiety, depression. Cardiac: No chest pain, angina or palpitations. Respiratory: No shortness of breath, cough, hemoptysis. GI no nausea, vomiting. Complains of abdominal pain, distention, passing flatus, not no bowel movement. no symptoms of dysuria, hematuria. Does have frequency. Extremities: Denies pain, mild chronic edema. Constitutional: No fever or chills. Hematological: No anemia or bleeding disorder. Endocrine: No history of diabetes mellitus, hypothyroidism. Skin: No rashes. PHYSICAL EXAMINATION: GENERAL: Pleasant gentleman present in no distress. VITAL SIGNS: Vital signs revealed temperature 98.3, pulse 67, respirations 15, blood pressure 126/57, pulse ox 99% on room air. HEENT: Normocephalic. Neck no JVD. Pupils are reactive. The nostrils clear. Oral cavity is moist. NECK reveals no JVD, carotid bruits or thyromegaly. CHEST examination is clear to auscultation percussion with mild generalized decreased air flow. CARDIAC distant heart sounds S1, S2 with no gallops. Regular rhythm. ABDOMEN distended, mildly tympanic. Bowel sounds are sluggish. No tenderness. No rebound tenderness. EXTREMITIES reveal no edema. Good pulses upper extremities. Decreased pedal pulses. NEUROLOGIC: Awake, alert, oriented with well-coordinated movements. LABORATORY ASSESSMENT: CBC normal. INR 1.5. Sodium 135, potassium 4.1, chloride 96. BUN 34, creatinine 1.1. The patient's GFR 59, glucose 129. Urine, 1+ ketones. Abdominal x-rays reveal significant dilated colon. ASSESSMENT: 1. Abdominal pain. 2. 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 3. Coronary artery disease. 4. Chronic atrial fibrillation. 5. Anticoagulated status. 6. Previous history of VSD and aortic valve replacement. PLAN: 1. The patient is stable at present. Continue present medical regimen. 2. Mild hydration. 3. The patient will be given lactulose. 4. Consultation with General surgery. Prognosis remains guarded. Patient's condition discussed with the patient and spouse. Patient meanwhile Coumadin will be on hold. MMODL / IJN: [id number] /
[2018-03-21] MEDS ORDERED: PHYTONADIONE 10 MG in SODIUM CHLORIDE 0.9% 50 ML IVPB STA (04:42)
--- NOTE | 2018-03-21 04:57 | P.GSCN ---
History of Present Illness Consult date: 03/21/18 History of present illness: This is a 87-year-old male who presents with a complaint of worsening abdominal pain and distention and not having a bowel movement for days. He was recently hospitalized for similar symptoms however he was discharged home when he had been feeling somewhat better. He states that he hasn't had anything like this before he has no significant abdominal surgical history. He isn't nauseated is not currently vomiting. He states he is not passing any gas or bowel movement at this time. Any states that over the last day as abdominal pain is began to worsen. He states that he does not feel that he can go on this way. Past Medical History Past Medical History: Atrial Fibrillation, Coronary Artery Disease (CAD), Hyperlipidemia, Hypertension, Myocardial Infarction (ME), Prostate Disorder Additional Past Medical History / Comment(s): Sleep apnea, no cpap, macular degeneration of right eye, blind L eye. Last Myocardial Infarction Date:: 2006 History of Any Multi-Drug Resistant Organisms: None Reported Past Surgical History: Cardiac Valve Replacement, Coronary Bypass/CABG, Heart Catheterization Additional Past Surgical History / Comment(s): 2006 - CABG - triple, aortic valve replaced, Loop procedure on 06-18-16. Past Anesthesia/Blood Transfusion Reactions: No Reported Reaction Past Psychological History: No Psychological Hx Reported Smoking Status: Never smoker Past Alcohol Use History: Occasional Additional Past Alcohol Use History / Comment(s): Hx. of drinking alcohol daily. states he currently not drinking alcohol because of these upcoming procedures. Past Drug Use History: None Reported - Past Family History Mother Family Medical History: Cancer Additional Family Medical History / Comment(s): breast cancer at 62 Father Additional Family Medical History / Comment(s): old age at 82 Medications and Allergies Home Medications Medication Instructions Recorded Confirmed Type Aspirin 81 mg PO QAM 04/15/16 03/20/18 History Enalapril Maleate [Vasotec] 2.5 mg PO QAM 04/15/16 03/20/18 History Furosemide [Lasix] 30 mg PO AC-BID 04/15/16 03/20/18 History Simvastatin [Zocor] 40 mg PO HS 04/15/16 03/20/18 History Tamsulosin [Flomax] 0.4 mg PO HS 04/15/16 03/20/18 History Warfarin [Coumadin] 2.5 mg PO MOWEFR 04/15/16 03/20/18 History Warfarin [Coumadin] 5 mg PO SUTUTHSA 04/15/16 03/20/18 History Vit C/E/Zn/Coppr/Lutein/Zeaxan 1 cap PO BID 02/16/17 03/20/18 History [Preservision Areds 2 Softgel] Dicyclomine HCl 20 mg PO QID 03/20/18 03/20/18 History Naproxen 250 mg PO BID 03/20/18 03/20/18 History Spironolactone [Aldactone] 25 mg PO DAILY 03/20/18 03/20/18 History Allergies Allergy/AdvReac Type Severity Reaction Status Date / Time lorazepam [From Ativan] AdvReac Hallucinati Verified 03/20/18 17:46 ons zolpidem [From Ambien] AdvReac Hallucinati Verified 03/20/18 17:46 ons Surgical - Exam Osteopathic Statement: *. No significant issues noted on an osteopathic structural exam other than those noted in the History and Physical/Consult. Vital Signs Temp Pulse Resp BP Pulse Ox 98.2 F 75 20 132/63 93 L 03/20/18 14:10 03/20/18 14:10 03/20/18 14:10 03/20/18 14:10 03/20/18 14:10 - General well developed, moderate distress - Neck no masses - Respiratory audible wheeze - Cardiovascular afib history of pacemaker - Abdomen distended and firm, tender to palpation diffusely - Neurologic normal coordination, normal sensation - Psychiatric oriented to time, oriented to person, oriented to place Results - Labs 03/20/18 14:47 03/20/18 14:47 Abnormal Lab Results - Last 24 Hours (Table) 03/20/18 03/20/18 03/20/18 Range/Units 14:47 14:47 14:47 Lymphocytes # 0.5 L (1.0-4.8) k/uL PT 14.3 H (9.0-12.0) sec INR 1.5 H (<1.2) Sodium 135 L (137-145) mmol/L Chloride 96 L (98-107) mmol/L BUN 34 H (9-20) mg/dL Glucose 129 H (74-99) mg/dL Urine Protein (Negative) Urine Ketones (Negative) 03/20/18 Range/Units 18:14 Lymphocytes # (1.0-4.8) k/uL PT (9.0-12.0) sec INR (<1.2) Sodium (137-145) mmol/L Chloride (98-107) mmol/L BUN (9-20) mg/dL Glucose (74-99) mg/dL Urine Protein Trace H (Negative) Urine Ketones 1+ H (Negative) Diabetes panel 03/20/18 Range/Units 14:47 Sodium 135 L (137-145) mmol/L Potassium 4.1 (3.5-5.1) mmol/L Chloride 96 L (98-107) mmol/L Carbon Dioxide 26 (22-30) mmol/L BUN 34 H (9-20) mg/dL Creatinine 1.11 (0.66-1.25) mg/dL Glucose 129 H (74-99) mg/dL Calcium 8.9 (8.4-10.2) mg/dL AST 31 (17-59) U/L ALT 40 (21-72) U/L Alkaline Phosphatase 61 (38-126) U/L Total Protein 6.3 (6.3-8.2) g/dL Albumin 3.8 (3.5-5.0) g/dL Calcium panel 03/20/18 Range/Units 14:47 Calcium 8.9 (8.4-10.2) mg/dL Albumin 3.8 (3.5-5.0) g/dL Pituitary panel 03/20/18 Range/Units 14:47 Sodium 135 L (137-145) mmol/L Potassium 4.1 (3.5-5.1) mmol/L Chloride 96 L (98-107) mmol/L Carbon Dioxide 26 (22-30) mmol/L BUN 34 H (9-20) mg/dL Creatinine 1.11 (0.66-1.25) mg/dL Glucose 129 H (74-99) mg/dL Calcium 8.9 (8.4-10.2) mg/dL Adrenal panel 03/20/18 Range/Units 14:47 Sodium 135 L (137-145) mmol/L Potassium 4.1 (3.5-5.1) mmol/L Chloride 96 L (98-107) mmol/L Carbon Dioxide 26 (22-30) mmol/L BUN 34 H (9-20) mg/dL Creatinine 1.11 (0.66-1.25) mg/dL Glucose 129 H (74-99) mg/dL Calcium 8.9 (8.4-10.2) mg/dL Total Bilirubin 1.0 (0.2-1.3) mg/dL AST 31 (17-59) U/L ALT 40 (21-72) U/L Alkaline Phosphatase 61 (38-126) U/L Total Protein 6.3 (6.3-8.2) g/dL Albumin 3.8 (3.5-5.0) g/dL - Imaging CT scan - abdomen: report reviewed, image reviewed, other (Report and images of computed tomography scan done previously on 24 was discussed with the radiologist on-call addendum was made and sigmoid volvulus was suspected on computed tomography scan) Assessment and Plan Assessment: Abdominal pain nausea distention 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 He has a significant cardiac history including CABG aortic valve and pacemaker. Given this he has had a significant risk for surgery however I discussed this with the patient and he elected to proceed with surgery. I discussed with him that he will be placed in intensive care unit after surgery and possibly on a ventilator and he was okay with this. I discussed with him that he will likely have an ostomy and he was also okay with this. The patient has not been taking his Coumadin regularly and his INR is only 1.5. He will receive 10 mg of vitamin K. He'll remain nothing by mouth. This plan was discussed with the admitting physician Dr. Lopez who was in agreement.
[2018-03-21 05:06] LABS: HCT 40.4 % (39.0-53.0); HGB 13.4 gm/dL (13.0-17.5); MCH 31.3 pg (25.0-35.0); MCHC 33.2 g/dL (31.0-37.0); MCV 94.1 fL (80.0-100.0); Mean Platelet Volume 6.7; Platelet Count 189 k/uL (150-450); RBC 4.29 m/uL (4.30-5.90); RDW 14.7 % (11.5-15.5); WBC 11.7 k/uL (3.8-10.6)
[2018-03-21 05:11] LABS: INR 1.6 (<1.2)
[2018-03-21 05:16] LABS: Calcium 8.9 mg/dL (8.4-10.2); Potassium 4.1 mmol/L (3.5-5.1)
--- NOTE | 2018-03-21 06:05 | P.PN ---
Subjective Progress Note Date: 03/21/18 This 87-year-old gentleman was admitted to the hospital with abdominal distention and pain. No nausea vomiting minimal flatus off and on. Patient during the night had significant pain required some Dilaudid with help. The patient was seen by the surgeon and he did call me up and discussed the case with me. He is electing surgery after reviewing x-rays and CAT scan with the radiologist. He suspects patient is a volvulus. The patient has been afebrile. His white counts, and up some. The patient at this time is resting in bed fairly comfortable laying flat. He denies any chest pain or shortness of breath. The nurses noted some hypoxia and patient's on oxygen. Patient does have a history of previous mitral valve repair and a previous VSD repair. He also has a previous CABG. Patient has no symptoms of angina. He has a pacemaker. He does have a history of congestive cardiac failure secondary to systolic dysfunction. He is adequately compensated. Surgical risk discussed with the surgeon as well as with the patient. Biggest risk is potential risk of CHF. Advised cautious fluid management. Patient is well oriented and understands the risks of surgery as well as the potential colostomy. The patient is adequately optimized for surgery. REVIEW OF SYSTEMS: Neuro: Denies any headaches dizziness. Psych: Denies anxiety depression feels oriented. Cardiac: Denies chest pain and angina palpitations. Respiratory: Denies shortness of breath cough. GI: Some nausea, no vomiting present symptoms of abdominal distention and pain intermittent passage of flatus. : Denies dysuria hematuria. Extremities: Denies pain. No edema. Skin: Intact. Constitutional: No fever, chills. Objective - Vital Signs Vital signs: Vital Signs Temp 97.8 F 03/21/18 05:19 Pulse 86 03/21/18 05:19 Resp 16 03/21/18 05:19 BP 150/83 03/21/18 05:19 Pulse Ox 92 L 03/21/18 05:19 Intake & Output 03/20/18 03/20/18 03/21/18 06:59 18:59 06:59 Intake Total 1160 Balance 1160 Weight 90.718 kg Intake: Intake, IV Titration 800 Amount Sodium Chloride 0.9% 1, 800 000 ml @ 50 mls/hr IV . Q20H STA Rx#:[id number] Oral 360 Other: # Voids 3 PHYSICAL EXAMINATION: Cooperative, at present in no acute distress. HEENT: Neck supple. No JVD. Chest: Clear to auscultation Cardiac: Normal S1-S2 no gallops systolic murmur 2/6 at the apex. Abdomen: Soft bowel sounds present right abdomen faint in nature. However left abdomen some high-pitched bowel sounds. Abdomen markedly distended and tympanic no tenderness though Extremities: No edema no tenderness Neurologically: Awake, alert, oriented with well-coordinated movements. - Labs CBC & Chem 7: 03/21/18 04:56 03/21/18 04:56 Labs: Abnormal Lab Results - Last 24 Hours (Table) 03/20/18 03/20/18 03/20/18 Range/Units 14:47 14:47 14:47 WBC (3.8-10.6) k/uL RBC (4.30-5.90) m/uL Lymphocytes # 0.5 L (1.0-4.8) k/uL PT 14.3 H (9.0-12.0) sec INR 1.5 H (<1.2) Sodium 135 L (137-145) mmol/L Chloride 96 L (98-107) mmol/L BUN 34 H (9-20) mg/dL Glucose 129 H (74-99) mg/dL Urine Protein (Negative) Urine Ketones (Negative) 03/20/18 03/21/18 03/21/18 Range/Units 18:14 04:56 04:56 WBC 11.7 H (3.8-10.6) k/uL RBC 4.29 L (4.30-5.90) m/uL Lymphocytes # (1.0-4.8) k/uL PT 15.0 H (9.0-12.0) sec INR 1.6 H (<1.2) Sodium (137-145) mmol/L Chloride (98-107) mmol/L BUN (9-20) mg/dL Glucose (74-99) mg/dL Urine Protein Trace H (Negative) Urine Ketones 1+ H (Negative) 03/21/18 Range/Units 04:56 WBC (3.8-10.6) k/uL RBC (4.30-5.90) m/uL Lymphocytes # (1.0-4.8) k/uL PT (9.0-12.0) sec INR (<1.2) Sodium 135 L (137-145) mmol/L Chloride (98-107) mmol/L BUN 31 H (9-20) mg/dL Glucose 132 H (74-99) mg/dL Urine Protein (Negative) Urine Ketones (Negative) Assessment and Plan Assessment: ASSESSMENT: 1. Abdominal distention and pain possible bowel obstruction. 2. History of atrial fibrillation and sick sinus syndrome. 3. Patient on anticoagulation with an INR 1.6. 4. History of aortic valve repair. 5. History of VSD repair. 6. Blindness right eye. 7. History of congestive cardiac failure secondary to systolic dysfunction adequately compensated. PLAN: Continued present rate of IV fluids. Patient is schedule for surgical procedure. Postop GI prophylaxis and DVT prophylaxis. Cautious fluid management perioperatively. Cardiac risk discussed with patient..
[2018-03-21] MEDS: LACTULOSE 20 GM/30 ML CUP PO SCH (07:06)
[2018-03-21] MEDS ORDERED: FUROSEMIDE 10 MG TAB PO SCH (07:30)
[2018-03-21] MEDS ORDERED: SPIRONOLACTONE 25 MG TAB PO SCH (09:00)
[2018-03-21] MEDS ORDERED: LISINOPRIL 5 MG TAB PO SCH (09:00)
[2018-03-21] MEDS ORDERED: MIDAZOLAM 2 MG/2 ML VIAL IV PRN (09:29)
[2018-03-21] MEDS ORDERED: fentaNYL (PF) 50 MCG/ML 2 ML AMP IV PRN (09:29)
[2018-03-21] MEDS ORDERED: LIDOCAINE 1% 20 ML VIAL (10MG/ML) FOR IV START INTRADERMA PRN (09:29)
[2018-03-21] MEDS ORDERED: metroNIDAZOLE-NS PMX 500 MG in SALINE 1 100ML.BAG IVPB STA (09:58)
[2018-03-21] MEDS ORDERED: fentaNYL (PF) 50 MCG/ML 2 ML AMP ONE (10:05)
[2018-03-21] MEDS ORDERED: SODIUM CHLORIDE 0.9% 50 ML with ceFAZolin 2,000 MG IV ONE ×2 (10:05)
[2018-03-21] MEDS ORDERED: IV FLUID CONTINUATION 700 ML IV ONE (10:05)
[2018-03-21] MEDS ORDERED: ROCURONIUM BROMIDE 10 MG/ML 10 ML VIAL IV ONE (10:05)
[2018-03-21] MEDS ORDERED: SUCCINYLCHOLINE CHLORIDE 100 MG/5 ML SYR IV ONE (10:05)
[2018-03-21] MEDS ORDERED: LIDOCAINE 1% INJ 10MG/ML (20 ML MDV) ONE (10:05)
[2018-03-21] MEDS ORDERED: MIDAZOLAM 2 MG/2 ML VIAL ONE (10:05)
[2018-03-21] MEDS ORDERED: LACTATED RINGERS 1,000 ML IV ONE ×2 (11:04→12:26)
[2018-03-21] MEDS: NYSTATIN 100,000UNIT/GM CREAM 30 GM TUBE TOPICAL SCH ×2 (12:23→21:00)
[2018-03-21] MEDS: LACTATED RINGERS 1,000 ML IV SCH (12:23)
[2018-03-21] MEDS ORDERED: NALOXONE 0.4 MG/ML 1 ML VIAL IV PRN (12:26)
[2018-03-21] MEDS ORDERED: ONDANSETRON 4 MG/2 ML VIAL IVP PRN (12:26)
--- NOTE | 2018-03-21 12:26 | P.OP ---
Date of Procedure: 03/21/18 Preoperative Diagnosis: Sigmoid volvulus Postoperative Diagnosis: same Procedure(s) Performed: Exploratory laparotomy with sigmoid resection and end colostomy creation Anesthesia: FIDELIA Surgeon: Wagner Givens Estimated Blood Loss (ml): 75 IV fluids (ml): 1,000 Condition: critical Disposition: ICU Description of Procedure: Patient was brought into the operative suite remained in the supine position was prepped and draped in the usual sterile fashion timeout was performed correct patient correct procedure correct site was verified. An midline incision was made and carried down through the fascia and the fascia was entered in the usual fashion 1 L of dark ascites was noted. This was suctioned. Immediately it was apparent there was markedly distended colon extending up in the right upper quadrant. This colon had multiple serosal tears and patchy areas of compromised ischemia. The sigmoid colon which was markedly distended was delivered through the incision and it was noted to be twisted at the mesenteric base. The proximal and distal ends were stapled across with a 75 mm blue load Endo KWAME stapler and the mesentery was then untwisted and ligated with a LigaSure device. An area in the left lower quadrant and between the rectus was identified and they 2 cm circular incision was made in the skin carried down to the fascia a cruciate incision was created and 3 fingers were passed through. The sigmoid colon was then freed up along the white line of Toldt. There was ample space to bring the proximal and through the circular incision for a end ostomy. The abdomen was then copiously irrigated and suctioned. The fascia was closed with 2 strands of 1 looped PDS. Followed by skin petra. Sterile towel was placed over incision and ostomy was created using 3-0 Vicryl sutures as brooking stitches followed by simple interrupted sutures. Sterile dressing was applied ostomy appliance was applied patient tolerated procedure well was transported the ICU in critical condition
[2018-03-21] MEDS ORDERED: PROPOFOL 100 ML IV ONE (12:46)
[2018-03-21 13:11] LABS: ABG Base Excess -1.4 mmol/L; ABG HCO3 23 mmol/L (21-25); ABG Oxygen Saturation 99.6 % (94-97); ABG PCO2 38 mmHg (35-45); ABG PO2 388 mmHg (83-108); ABG TCO2 25 mmol/L (19-24)
--- NOTE | 2018-03-21 13:14 | P.PN ---
Subjective Progress Note Date: 03/21/18 This 87-year-old gentleman was admitted to the hospital with abdominal pain and discomfort and bloating. Patient was seen by the general surgeon Dr. givens and taken for surgery this morning for suspected sigmoid volvulus. The patient had surgery today to have a sigmoid volvulus. The patient has had a subsequent colostomy. Patient seen in the ICU. Patient's condition discussed with Dr. Givens and case discussed with Dr. Ortiz over the phone. The patient is on a ventilator. Vital signs are stable. His colostomy left lower quadrant. Lung pfeiffer reveal adequate airflow bilaterally. Patient as an IDC with reasonable amount of urine output. Review of system: Patient on a ventilator management unable to respond. Objective - Vital Signs Vital signs: Vital Signs Temp 97.9 F 03/21/18 12:40 Pulse 77 03/21/18 12:50 Resp 13 03/21/18 12:50 BP 112/69 03/21/18 12:50 Pulse Ox 100 03/21/18 12:50 Intake & Output 03/20/18 03/21/18 03/21/18 18:59 06:59 18:59 Intake Total 1160 1300 Output Total 425 Balance 1160 875 Weight 90.718 kg 92.5 kg Intake: IV 1300 Intake, IV Titration 800 Amount Sodium Chloride 0.9% 1, 800 000 ml @ 50 mls/hr IV . Q20H STA Rx#:[id number] Oral 360 Output: Urine 350 Estimated Blood Loss 75 Other: Voiding Method Indwelling Catheter # Voids 3 3 ABP, PAP, CO, CI - Last Documented Arterial Blood Pressure 167/73 PHYSICAL EXAMINATION: Patient sedated on a ventilator. HEENT: ET tube in place.] Chest: [Clear to auscultation Cardiac: Normal S1-S2 no gallops systolic murmur apex murmur . Abdomen: Colostomy left lower quadrant Extremities: No edema Neurologically: Sedated - Labs CBC & Chem 7: 03/21/18 04:56 03/21/18 04:56 Labs: Abnormal Lab Results - Last 24 Hours (Table) 03/20/18 03/20/18 03/20/18 Range/Units 14:47 14:47 14:47 WBC (3.8-10.6) k/uL RBC (4.30-5.90) m/uL Lymphocytes # 0.5 L (1.0-4.8) k/uL PT 14.3 H (9.0-12.0) sec INR 1.5 H (<1.2) Sodium 135 L (137-145) mmol/L Chloride 96 L (98-107) mmol/L BUN 34 H (9-20) mg/dL Glucose 129 H (74-99) mg/dL Urine Protein (Negative) Urine Ketones (Negative) Crossmatch 03/20/18 03/21/18 03/21/18 Range/Units 18:14 04:56 04:56 WBC 11.7 H (3.8-10.6) k/uL RBC 4.29 L (4.30-5.90) m/uL Lymphocytes # (1.0-4.8) k/uL PT 15.0 H (9.0-12.0) sec INR 1.6 H (<1.2) Sodium (137-145) mmol/L Chloride (98-107) mmol/L BUN (9-20) mg/dL Glucose (74-99) mg/dL Urine Protein Trace H (Negative) Urine Ketones 1+ H (Negative) Crossmatch 03/21/18 03/21/18 Range/Units 04:56 04:56 WBC (3.8-10.6) k/uL RBC (4.30-5.90) m/uL Lymphocytes # (1.0-4.8) k/uL PT (9.0-12.0) sec INR (<1.2) Sodium 135 L (137-145) mmol/L Chloride (98-107) mmol/L BUN 31 H (9-20) mg/dL Glucose 132 H (74-99) mg/dL Urine Protein (Negative) Urine Ketones (Negative) Crossmatch See Detail Assessment and Plan Assessment: ASSESSMENT: 1. [Ventilatory support post surgery]. 2. [Status post sigmoid surgery for volvulus]. 3. [Left lower quadrant colostomy]. 4. [Mitral regurgitation]. 5. [History of aortic valve replacement]. 6. [History of VSD repair]. 7. [Chronic atrial fibrillation]. PLAN: [Continue present medical management of ventilator and IV fluids. 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 Patient should be able to be extubated. Prognosis remains guarded case reviewed with Dr. Reid.].
[2018-03-21] MEDS ORDERED: IPRATROPIUM-ALBUTEROL 3 ML NEB INHALATION PRN (13:16)
[2018-03-21] MEDS ORDERED: PROPOFOL 1,000 MG in EMPTY BAG 1 BAG IV SCH (13:30)
[2018-03-21] MEDS: IPRATROPIUM-ALBUTEROL 3 ML NEB INHALATION SCH ×3 (15:20→23:58)
[2018-03-21] MEDS: HEPARIN SODIUM,PORCINE 5,000 UNIT/ML 1 ML VIAL SQ SCH (15:42)
--- NOTE | 2018-03-21 16:26 | P.CNPUL ---
History of Present Illness Consult date: 03/21/18 Reason for consult: other Chief complaint: Abdominal pain History of present illness: Pulmonary consult dated 03/21/2018 This is an 87-year-old male who came to the emergency room complaining of abdominal pain and distention. The patient apparently was in the emergency room 2 days earlier with similar symptoms. At that time he was given an enema with some relief. The symptoms worsened and the patient came back to the ER. X -ray showed a distended right colon. He was admitted to the hospital and taken to the operating room earlier today by Dr. jones and the patient had a colectomy with colostomy. Dr. jones told me he had a volvulus. A computed tomography scan done 2 days ago showed evidence of narrowing of the sigmoid colon. Currently the patient's in the ICU on the ventilator. He's of his underlying assist control mode with a rate of 12 tidal volume of 600 FiO2 35% and PEEP of 5. In my opinion it appears that he might be able to be extubated. The patient was on propofol but that has been discontinued. He does arouse. We will place him on pressure support ventilation of 5 and CPAP of 5 check some weaning parameters and a cuff leak and see whether or not we can extubate him. His past medical history is positive for coronary artery disease and valvular heart disease. He's also had a pacemaker placement. The patient also has a history of VSD. She had previous repair and aortic valve replacement and bypass grafting. 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 He also has a history of congestive heart failure. He has multiple previous surgeries as mentioned above. He is a nonsmoker and does not drink alcohol. No illicit drug use. ALLERGIES are none. Home medications are listed in the summary. Review of Systems ROS unobtainable: due to endotracheal tube Past Medical History Past Medical History: Atrial Fibrillation, Coronary Artery Disease (CAD), Hyperlipidemia, Hypertension, Myocardial Infarction ([place]), Prostate Disorder Additional Past Medical History / Comment(s): Sleep apnea, no cpap, macular degeneration of right eye, blind L eye. Last Myocardial Infarction Date:: 2006 History of Any Multi-Drug Resistant Organisms: None Reported Past Surgical History: Cardiac Valve Replacement, Coronary Bypass/CABG, Heart Catheterization Additional Past Surgical History / Comment(s): 2006 - CABG - triple, aortic valve replaced, Loop procedure on 06-18-16. Past Anesthesia/Blood Transfusion Reactions: No Reported Reaction Past Psychological History: No Psychological Hx Reported Smoking Status: Never smoker Past Alcohol Use History: Occasional Additional Past Alcohol Use History / Comment(s): Hx. of drinking alcohol daily. states he currently not drinking alcohol because of these upcoming procedures. Past Drug Use History: None Reported - Past Family History Mother Family Medical History: Cancer Additional Family Medical History / Comment(s): breast cancer at 62 Father Additional Family Medical History / Comment(s): old age at 82 Medications and Allergies Home Medications Medication Instructions Recorded Confirmed Type Aspirin 81 mg PO QAM 04/15/16 03/20/18 History Enalapril Maleate [Vasotec] 2.5 mg PO QAM 04/15/16 03/20/18 History Furosemide [Lasix] 30 mg PO AC-BID 04/15/16 03/20/18 History Simvastatin [Zocor] 40 mg PO HS 04/15/16 03/20/18 History Tamsulosin [Flomax] 0.4 mg PO HS 04/15/16 03/20/18 History Warfarin [Coumadin] 2.5 mg PO MOWEFR 04/15/16 03/20/18 History Warfarin [Coumadin] 5 mg PO SUTUTHSA 04/15/16 03/20/18 History Vit C/E/Zn/Coppr/Lutein/Zeaxan 1 cap PO BID 02/16/17 03/20/18 History [Preservision Areds 2 Softgel] Dicyclomine HCl 20 mg PO QID 03/20/18 03/20/18 History Naproxen 250 mg PO BID 03/20/18 03/20/18 History Spironolactone [Aldactone] 25 mg PO DAILY 03/20/18 03/20/18 History Allergies Allergy/AdvReac Type Severity Reaction Status Date / Time lorazepam [From Ativan] AdvReac Hallucinati Verified 03/20/18 17:46 ons zolpidem [From Ambien] AdvReac Hallucinati Verified 03/20/18 17:46 ons Physical Exam Osteopathic Statement: *. No significant issues noted on an osteopathic structural exam other than those noted in the History and Physical/Consult. Vitals: Vital Signs Temp Pulse Pulse Resp BP BP Pulse Ox 05/27/18 16:00 98.7 F 73 16 100 03/21/18 15:35 76 03/21/18 15:20 74 03/21/18 15:00 70 16 99 03/21/18 14:00 73 16 112/69 99 03/21/18 13:00 98.4 F 77 12 112/69 100 03/21/18 12:50 77 13 112/69 100 03/21/18 12:40 97.9 F 76 12 112/69 100 03/21/18 07:31 97.9 F 106 H 17 134/73 93 L 03/21/18 05:19 97.8 F 86 16 150/83 92 L 03/21/18 04:59 98.9 F 76 16 139/67 92 L 03/21/18 00:52 97.9 F 88 18 137/55 95 03/20/18 20:05 97.2 F L 74 16 119/67 94 L 03/20/18 19:00 98.3 F 67 15 126/57 99 03/20/18 18:51 98.3 F 67 15 126/57 99 03/20/18 17:31 58 L 18 124/61 93 L 03/20/18 16:25 86 18 146/67 92 L Intake and Output 03/21/18 03/21/18 03/21/18 06:59 14:59 22:59 Intake Total 400 1550 250 Output Total 455 80 Balance 400 1095 170 Intake: IV 1550 250 Lactated Ringers 1,000 ml 250 250 @ 125 mls/hr IV .Q8H [facility] Rx#:[id number] Intake, IV Titration 400 Amount Sodium Chloride 0.9% 1, 400 000 ml @ 50 mls/hr IV . Q20H [facility] Rx#:[id number] Output: Urine 380 80 Estimated Blood Loss 75 Other: Voiding Method Indwelling Catheter # Voids 3 3 Weight 92.5 kg ABP, PAP, CO, CI - Last 8 Hours Arterial Blood Pressure 128/60 Arterial Blood Pressure 150/68 Arterial Blood Pressure 147/66 Arterial Blood Pressure 148/61 Arterial Blood Pressure 167/73 Arterial Blood Pressure 172/80 No acute distress, he has a oral endotracheal tube and NG tube. He is currently on the ventilator. He does arouse. HEENT examination is grossly unremarkable. Mucous membranes are moist. Neck supple. Full range of motion. No adenopathy thyromegaly or neck vein distention. Cardiovascular examination reveals regular rhythm rate. S1-S2 normal. No S3 or S4. No discernible murmur noted. Lungs reveal a few scattered rhonchi. Breath sounds are equal bilaterally.. Abdomen soft without bowel sounds. Colostomy is noted. Extremities are intact. No cyanosis clubbing or edema. Skin is without rash or lesion. Neurologic examination could not be adequately performed. Results - Laboratory Findings CBC and BMP: 03/21/18 04:56 03/21/18 04:56 ABG ABG pH 7.40 (7.35-7.45) 03/21/18 13:08 ABG pCO2 38 mmHg (35-45) 03/21/18 13:08 ABG pO2 388 mmHg (83-108) H 03/21/18 13:08 ABG O2 Saturation 99.6 % (94-97) H 03/21/18 13:08 PT/INR, D-dimer PT 15.0 sec (9.0-12.0) H 03/21/18 04:56 INR 1.6 (<1.2) H 03/21/18 04:56 Abnormal lab findings: Abnormal Labs 03/20/18 03/20/18 03/20/18 14:47 14:47 14:47 WBC RBC Lymphocytes # 0.5 L PT 14.3 H INR 1.5 H ABG pO2 ABG Total CO2 ABG O2 Saturation Sodium 135 L Chloride 96 L BUN 34 H Glucose 129 H Urine Protein Urine Ketones Crossmatch 03/20/18 03/21/18 03/21/18 18:14 04:56 04:56 WBC 11.7 H RBC 4.29 L Lymphocytes # PT 15.0 H INR 1.6 H ABG pO2 ABG Total CO2 ABG O2 Saturation Sodium Chloride BUN Glucose Urine Protein Trace H Urine Ketones 1+ H Crossmatch 03/21/18 03/21/18 03/21/18 04:56 04:56 13:08 WBC RBC Lymphocytes # PT INR ABG pO2 388 H ABG Total CO2 25 H ABG O2 Saturation 99.6 H Sodium 135 L Chloride BUN 31 H Glucose 132 H Urine Protein Urine Ketones Crossmatch See Detail - Diagnostic Findings Chest x-ray: image reviewed (Labs x-rays and medications are all reviewed.) Assessment and Plan Assessment: Assessment Postop day #0, status post colectomy with colostomy for volvulus. Postoperative respiratory failure. History of chronic atrial fibrillation, status post pacemaker History of heart failure History of hyperlipidemia History of gout History of coronary artery disease status post bypass grafting Previous history of valvular heart disease with aortic valve replacement History of VSD status post repair. History of multiple other comorbidities Plan: Plan dated 03/21/2018 The patient will be placed on PSV 5 CPAP of 5. We'll get weaning parameters. That will include a tidal volume vital capacity negative inspiratory force rapid shallow breathing index respiratory rate minute volume. We'll also do a rapid shallow breathing index and check her cuff leak. Hopefully the patient can be extubated. Labs x-rays and medications are all reviewed. Prognosis is guarded. Time with Patient: Greater than 30
[2018-03-21 17:05] LABS: ABG Base Excess -2.2 mmol/L; ABG HCO3 23 mmol/L (21-25); ABG Oxygen Saturation 91.8 % (94-97); ABG PCO2 41 mmHg (35-45); ABG PH 7.36 (7.35-7.45); ABG PO2 63 mmHg (83-108); ABG TCO2 25 mmol/L (19-24)
[2018-03-21] MEDS ORDERED: CLEVIDIPINE BUTYRATE 25 MG in EMPTY BAG 1 BAG IV SCH (17:15)
[2018-03-21] MEDS: CHLORHEXIDINE GLUCONATE 15 ML CUP MUCOUS MEM SCH (21:08)
[2018-03-21] MEDS: TAMSULOSIN 0.4 MG CAP.ER.24H PO SCH (22:31)
[2018-03-22] MEDS: HEPARIN SODIUM,PORCINE 5,000 UNIT/ML 1 ML VIAL SQ SCH ×2 (00:06→08:40)
[2018-03-22] MEDS: IPRATROPIUM-ALBUTEROL 3 ML NEB INHALATION SCH ×6 (03:45→23:55)
[2018-03-22 04:41] LABS: Basophils % (A) 0 %; Eosinophils % (A) 0 %; HCT 38.2 % (39.0-53.0); HGB 12.5 gm/dL (13.0-17.5); Lymphocytes # (A) 0.5 k/uL (1.0-4.8); Lymphocytes % (A) 4 %; MCH 30.6 pg (25.0-35.0); MCHC 32.7 g/dL (31.0-37.0); MCV 93.6 fL (80.0-100.0); Mean Platelet Volume 6.6; Monocytes # (A) 0.7 k/uL (0-1.0); Monocytes % (A) 7 %; Neutrophils # (A) 9.7 k/uL (1.3-7.7); Neutrophils % (A) 88 %; Platelet Count 163 k/uL (150-450); RBC 4.08 m/uL (4.30-5.90); WBC 11.1 k/uL (3.8-10.6)
[2018-03-22 04:56] LABS: Albumin 2.9 g/dL (3.5-5.0); Calcium 8.4 mg/dL (8.4-10.2); Magnesium 2.1 mg/dL (1.6-2.3); Phosphorus 2.8 mg/dL (2.5-4.5); Potassium 4.4 mmol/L (3.5-5.1); Total Bilirubin 0.9 mg/dL (0.2-1.3); Total Protein 5.3 g/dL (6.3-8.2)
[2018-03-22] MEDS: PANTOPRAZOLE 40 MG TABLET PO SCH (08:40)
[2018-03-22] MEDS: CHLORHEXIDINE GLUCONATE 15 ML CUP MUCOUS MEM SCH ×2 (08:40→22:18)
[2018-03-22] MEDS ORDERED: ENOXAPARIN 80 MG/0.8 ML SYRINGE SQ SCH (09:45)
--- NOTE | 2018-03-22 10:25 | P.PN ---
Subjective Progress Note Date: 03/22/18 Principal diagnosis: Volvulus, status post colectomy with colostomy. This is an 87-year-old male who came to the emergency room complaining of abdominal pain and distention. The patient apparently was in the emergency room 2 days earlier with similar symptoms. At that time he was given an enema with some relief. The symptoms worsened and the patient came back to the ER. X -ray showed a distended right colon. He was admitted to the hospital and taken to the operating room 03/21/[address] Givens and the patient had a colectomy with colostomy. The patient is seen again today in follow-up in the intensive care unit. He was successfully extubated yesterday. He is awake and alert in no acute distress. He denies any shortness of breath, cough or congestion. He is maintaining good O2 saturations in the high 90s on 2 L/m per nasal cannula. Temperature 99.8. White count 11.1. He remains on bronchodilators. Working well with the incentive spirometer. Ostomy is functioning. Objective - Vital Signs Vital signs: Vital Signs Temp 99.8 F H 03/22/18 08:00 Pulse 86 03/22/18 09:00 Resp 32 H 03/22/18 09:00 BP 99/53 03/22/18 09:00 Pulse Ox 99 03/22/18 09:00 Intake & Output 03/21/18 03/22/18 03/22/18 18:59 06:59 18:59 Intake Total 2049 555 60 Output Total 665 700 370 Balance 1385 -145 -310 Weight 92.5 kg 95.7 kg Intake: IV 2049 555 60 Lactated Ringers 1,000 ml 750 375 @ 125 mls/hr IV .Q8H [facility] Rx#:[id number] Lactated Ringers 1,000 ml 180 60 @ 20 mls/hr IV .Q24H [facility] Rx#:[id number] Output: Urine 590 700 120 Stool 250 Estimated Blood Loss 75 Other: Voiding Method Indwelling Catheter Indwelling Catheter Indwelling Catheter # Voids 3 # Bowel Movements 1 ABP, PAP, CO, CI - Last Documented Arterial Blood Pressure 133/61 - Exam GENERAL EXAM: Alert, active, comfortable in no apparent distress. HEAD: Normocephalic. EYES: Normal reaction of pupils, equal size. NOSE: Clear with pink turbinates. THROAT: No erythema or exudates. NECK: No masses, no JVD. CHEST: No chest wall deformity. LUNGS: Equal air entry with no crackles, wheeze, rhonchi or dullness. CVS: S1 and S2 normal with no audible murmur, irregular rhythm. ABDOMEN: Colostomy functioning. SPINE: No scoliosis or deformity SKIN: No rashes CENTRAL NERVOUS SYSTEM: No focal deficits, tone is normal in all 4 extremities. EXTREMITIES: There is no peripheral edema. No clubbing, no cyanosis. Peripheral pulses are intact. - Labs CBC & Chem 7: 03/22/18 04:35 03/22/18 04:35 Labs: Abnormal Lab Results - Last 24 Hours (Table) 03/21/18 03/21/18 03/21/18 Range/Units 04:56 13:08 16:56 WBC (3.8-10.6) k/uL RBC (4.30-5.90) m/uL Hgb (13.0-17.5) gm/dL Hct (39.0-53.0) % Neutrophils # (1.3-7.7) k/uL Lymphocytes # (1.0-4.8) k/uL ABG pO2 388 H 63 L (83-108) mmHg ABG Total CO2 25 H 25 H (19-24) mmol/L ABG O2 Saturation 99.6 H 91.8 L (94-97) % BUN (9-20) mg/dL Glucose (74-99) mg/dL Total Protein (6.3-8.2) g/dL Albumin (3.5-5.0) g/dL Crossmatch See Detail 03/22/18 03/22/18 Range/Units 04:35 04:35 WBC 11.1 H (3.8-10.6) k/uL RBC 4.08 L (4.30-5.90) m/uL Hgb 12.5 L (13.0-17.5) gm/dL Hct 38.2 L (39.0-53.0) % Neutrophils # 9.7 H (1.3-7.7) k/uL Lymphocytes # 0.5 L (1.0-4.8) k/uL ABG pO2 (83-108) mmHg ABG Total CO2 (19-24) mmol/L ABG O2 Saturation (94-97) % BUN 24 H (9-20) mg/dL Glucose 124 H (74-99) mg/dL Total Protein 5.3 L (6.3-8.2) g/dL Albumin 2.9 L (3.5-5.0) g/dL Crossmatch Assessment and Plan Assessment: Assessment Postop day #1, status post colectomy with colostomy for volvulus. Postoperative respiratory failure. History of chronic atrial fibrillation, status post pacemaker History of heart failure History of hyperlipidemia History of gout History of coronary artery disease status post bypass grafting Previous history of valvular heart disease with aortic valve replacement History of VSD status post repair. History of multiple other comorbidities Plan: The patient was seen and evaluated by Dr. Ortiz. He is stable from the pulmonary and critical care standpoint he could be transferred out of the intensive care unit to the surgical floor with remote telemetry. Anticoagulation will need to be addressed. We'll check with the surgeons when the patient could be reinitiated on his warfarin. We will increase his activity as tolerated. Continue to work with the incentive spirometer and cough and deep breathing exercises. We'll continue to follow. I, the cosigning physician, performed a history & physical examination of the patient. Lungs sounds are clear. Maintaining good O2 saturations in the 90s on 2 L/m per nasal cannula. I discussed the assessment and plan of care with my nurse practitioner, Eleanor Carrasco. I attest to the above note as dictated by her.
--- NOTE | 2018-03-22 10:38 | P.PN ---
Subjective Progress Note Date: 03/22/18 Principal diagnosis: Sigmoid volvulus with bowel obstruction This 87-year-old old gentleman was admitted to the hospital with abdominal pain and distention. Patient was noted to have significantly dilated colon. In view of this he was evaluated by surgeon and subsequently taken in for surgery. Surgery was yesterday. The patient had a volvulus which was removed. The patient has a colostomy now. He was post surgery intubated yesterday and placed in the ICU. Patient subsequently extubated. He is doing well is alert denies any symptoms including much pain. His been started on full liquids which hasn't had yet. There is some stool in the colostomy bag. No bleeding. Patient does have a history of paroxysmal atrial fibrillation and a pacemaker placed. Known history of coronary artery disease and previous aortic valve replacement and VSD repair. REVIEW OF SYSTEMS: Neuro: Denies any headaches dizziness. Psych: Denies anxiety depression feels oriented. Cardiac: Denies chest pain and angina palpitations. Respiratory: Denies shortness of breath cough. GI: Mild abdominal pain : Has a Anderson catheter with no dysuria hematuria Extremities: No edema. Skn: Intact. Constitutinal: no fever chills. Objective - Vital Signs Vital signs: Vital Signs Temp 99.8 F H 03/22/18 08:00 Pulse 86 03/22/18 09:00 Resp 32 H 03/22/18 09:00 BP 99/53 03/22/18 09:00 Pulse Ox 99 03/22/18 09:00 Intake & Output 03/21/18 03/22/18 03/22/18 18:59 06:59 18:59 Intake Total 2049 555 60 Output Total 665 700 370 Balance 1385 -145 -310 Weight 92.5 kg 95.7 kg Intake: IV 2049 555 60 Lactated Ringers 1,000 ml 750 375 @ 125 mls/hr IV .Q8H [facility] Rx#:[id number] Lactated Ringers 1,000 ml 180 60 @ 20 mls/hr IV .Q24H [facility] Rx#:[id number] Output: Urine 590 700 120 Stool 250 Estimated Blood Loss 75 Other: Voiding Method Indwelling Catheter Indwelling Catheter Indwelling Catheter # Voids 3 # Bowel Movements 1 ABP, PAP, CO, CI - Last Documented Arterial Blood Pressure 133/61 - Labs CBC & Chem 7: 03/22/18 04:35 03/22/18 04:35 Labs: Abnormal Lab Results - Last 24 Hours (Table) 03/21/18 03/21/18 03/21/18 Range/Units 04:56 13:08 16:56 WBC (3.8-10.6) k/uL RBC (4.30-5.90) m/uL Hgb (13.0-17.5) gm/dL Hct (39.0-53.0) % Neutrophils # (1.3-7.7) k/uL Lymphocytes # (1.0-4.8) k/uL ABG pO2 388 H 63 L (83-108) mmHg ABG Total CO2 25 H 25 H (19-24) mmol/L ABG O2 Saturation 99.6 H 91.8 L (94-97) % BUN (9-20) mg/dL Glucose (74-99) mg/dL Total Protein (6.3-8.2) g/dL Albumin (3.5-5.0) g/dL Crossmatch See Detail 03/22/18 03/22/18 Range/Units 04:35 04:35 WBC 11.1 H (3.8-10.6) k/uL RBC 4.08 L (4.30-5.90) m/uL Hgb 12.5 L (13.0-17.5) gm/dL Hct 38.2 L (39.0-53.0) % Neutrophils # 9.7 H (1.3-7.7) k/uL Lymphocytes # 0.5 L (1.0-4.8) k/uL ABG pO2 (83-108) mmHg ABG Total CO2 (19-24) mmol/L ABG O2 Saturation (94-97) % BUN 24 H (9-20) mg/dL Glucose 124 H (74-99) mg/dL Total Protein 5.3 L (6.3-8.2) g/dL Albumin 2.9 L (3.5-5.0) g/dL Crossmatch Assessment and Plan Assessment: ASSESSMENT: 1. Status post bowel surgery for sigmoid volvulus. 2. Chronic atrial fibrillation. 3. Pacemaker status. 4. Chronic congestive cardiac failure with systolic dysfunction , compensated. 5. History of aortic valve replacement. 6. History of VSD repair. 7. Blindness right eye. PLAN: Continue present medical regimen with cautious hydration. The patient has been started on oral liquid diet. Patient was started on Lovenox. If there is been no problems of any bleeding patient will be resumed on Coumadin. Patient's condition discussed with the patient and family prognosis guarded. Patient's planned to be moved out of the ICU today.
[2018-03-22] MEDS: HYDROmorphone 0.5 MG/0.5 ML SYRINGE IVP PRN (10:56)
[2018-03-22] MEDS: NYSTATIN 100,000UNIT/GM CREAM 30 GM TUBE TOPICAL SCH ×2 (10:56→22:18)
--- NOTE | 2018-03-22 14:44 | P.PN ---
Subjective Progress Note Date: 03/22/18 Patient has been extubated and moved to the surgical floor from the ICU. He sitting up in a chair comfortably. He has no complaints today. He has stool in his ostomy bag. He is doing very well. Objective - Vital Signs Vital signs: Vital Signs Temp 97.7 F 03/22/18 12:13 Pulse 77 03/22/18 12:13 Resp 16 03/22/18 12:13 BP 136/72 03/22/18 12:13 Pulse Ox 96 03/22/18 12:13 Intake & Output 03/21/18 03/22/18 03/22/18 18:59 06:59 18:59 Intake Total 2049 555 60 Output Total 665 700 370 Balance 1385 -145 -310 Weight 92.5 kg 95.7 kg Intake: IV 2049 555 60 Lactated Ringers 1,000 ml 750 375 @ 125 mls/hr IV .Q8H [facility] Rx#:[id number] Lactated Ringers 1,000 ml 180 60 @ 20 mls/hr IV .Q24H [facility] Rx#:[id number] Output: Urine 590 700 120 Stool 250 Estimated Blood Loss 75 Other: Voiding Method Indwelling Catheter Indwelling Catheter Indwelling Catheter # Voids 3 # Bowel Movements 1 ABP, PAP, CO, CI - Last Documented Arterial Blood Pressure 133/55 - Constitutional General appearance: Present: average body habitus, cooperative - Respiratory Details: Nonlabored - Gastrointestinal Gastrointestinal Comment(s): Soft nondistended. Incision had some stool on an as ostomy bag leaked underneath the dressing. There is stool in the ostomy bag. The ostomy itself is somewhat edematous there is a small hematoma on the medial portion however the majority of the ostomy is pink and patent. - Psychiatric Psychiatric: Present: A&O x's 3 - Labs CBC & Chem 7: 03/22/18 04:35 03/22/18 04:35 Labs: Abnormal Lab Results - Last 24 Hours (Table) 03/21/18 03/21/18 03/22/18 Range/Units 04:56 16:56 04:35 WBC 11.1 H (3.8-10.6) k/uL RBC 4.08 L (4.30-5.90) m/uL Hgb 12.5 L (13.0-17.5) gm/dL Hct 38.2 L (39.0-53.0) % Neutrophils # 9.7 H (1.3-7.7) k/uL Lymphocytes # 0.5 L (1.0-4.8) k/uL ABG pO2 63 L (83-108) mmHg ABG Total CO2 25 H (19-24) mmol/L ABG O2 Saturation 91.8 L (94-97) % BUN (9-20) mg/dL Glucose (74-99) mg/dL Total Protein (6.3-8.2) g/dL Albumin (3.5-5.0) g/dL Crossmatch See Detail 03/22/18 Range/Units 04:35 WBC (3.8-10.6) k/uL RBC (4.30-5.90) m/uL Hgb (13.0-17.5) gm/dL Hct (39.0-53.0) % Neutrophils # (1.3-7.7) k/uL Lymphocytes # (1.0-4.8) k/uL ABG pO2 (83-108) mmHg ABG Total CO2 (19-24) mmol/L ABG O2 Saturation (94-97) % BUN 24 H (9-20) mg/dL Glucose 124 H (74-99) mg/dL Total Protein 5.3 L (6.3-8.2) g/dL Albumin 2.9 L (3.5-5.0) g/dL Crossmatch Assessment and Plan Assessment: Postoperative day 1 exploratory laparotomy with sigmoid resection and end colostomy creation Plan: Patient is progressing well. He may be started on a soft diet. His pain is well-controlled. Ostomy nurse was consulted. I discussed with the nurse the importance of keeping his incision clean and dry. He may be started back on his blood thinners from a surgical standpoint. Continue to work with PT OT. Doing well with incentive spirometry
[2018-03-22] MEDS: LACTATED RINGERS 1,000 ML IV SCH (16:39)
[2018-03-22] MEDS: ENOXAPARIN 100 MG/ML SYRINGE SQ SCH ×2 (18:47→22:17)
[2018-03-22] MEDS: TAMSULOSIN 0.4 MG CAP.ER.24H PO SCH (22:18)
[2018-03-23] MEDS: IPRATROPIUM-ALBUTEROL 3 ML NEB INHALATION SCH ×6 (03:48→23:53)
[2018-03-23 07:51] LABS: Calcium 8.3 mg/dL (8.4-10.2); Magnesium 2.2 mg/dL (1.6-2.3); Phosphorus 2.5 mg/dL (2.5-4.5); Potassium 4.8 mmol/L (3.5-5.1)
[2018-03-23] MEDS: ENOXAPARIN 100 MG/ML SYRINGE SQ SCH ×2 (08:33→20:54)
[2018-03-23] MEDS: NYSTATIN 100,000UNIT/GM CREAM 30 GM TUBE TOPICAL SCH ×2 (08:33→20:54)
[2018-03-23] MEDS: PANTOPRAZOLE 40 MG TABLET PO SCH (08:34)
[2018-03-23 08:35] LABS: Basophils # (A) 0.1 k/uL (0-0.2); Basophils % (A) 0 %; Eosinophils # (A) 0.1 k/uL (0-0.7); Eosinophils % (A) 0 %; HCT 39.7 % (39.0-53.0); HGB 12.9 gm/dL (13.0-17.5); Lymphocytes # (A) 0.4 k/uL (1.0-4.8); Lymphocytes % (A) 4 %; MCH 31.2 pg (25.0-35.0); MCHC 32.6 g/dL (31.0-37.0); MCV 95.6 fL (80.0-100.0); Mean Platelet Volume 6.9; Monocytes # (A) 0.9 k/uL (0-1.0); Monocytes % (A) 7 %; Neutrophils # (A) 10.5 k/uL (1.3-7.7); Neutrophils % (A) 87 %; Platelet Count 162 k/uL (150-450); RBC 4.15 m/uL (4.30-5.90)
--- NOTE | 2018-03-23 12:38 | P.PN ---
Subjective Progress Note Date: 03/23/18 Patient's doing very well today. He is having output out of his ostomy he tolerated his nnujiylox-tibv-som male. He states pain is very well controlled. He walked with PT he is up in a chair. He is doing well with his incentive spirometry. Objective - Vital Signs Vital signs: Vital Signs Temp 97.5 F L 03/23/18 06:52 Pulse 78 03/23/18 11:26 Resp 16 03/23/18 06:52 BP 166/84 03/23/18 06:52 Pulse Ox 94 L 03/23/18 06:52 Intake & Output 03/22/18 03/23/18 03/23/18 18:59 06:59 18:59 Intake Total 60 237 Output Total 670 125 Balance -610 -125 237 Intake: IV 60 Lactated Ringers 1,000 ml 60 @ 20 mls/hr IV .Q24H [facility] Rx#:[id number] Oral 237 Output: Urine 420 125 Stool 250 Other: Voiding Method Indwelling Catheter # Voids 1 # Bowel Movements 1 ABP, PAP, CO, CI - Last Documented Arterial Blood Pressure 133/55 - Constitutional General appearance: Present: cooperative - Respiratory Details: Nonlabored breathing - Gastrointestinal Gastrointestinal Comment(s): Soft nondistended expected incisional tenderness palpation. Ostomy with small hematoma. [place] and patent with stool in bag - Psychiatric Psychiatric: Present: A&O x's 3 - Labs CBC & Chem 7: 03/23/18 07:07 03/23/18 07:07 Labs: Abnormal Lab Results - Last 24 Hours (Table) 03/23/18 03/23/18 Range/Units 07:07 07:07 WBC 12.0 H (3.8-10.6) k/uL RBC 4.15 L (4.30-5.90) m/uL Hgb 12.9 L (13.0-17.5) gm/dL Neutrophils # 10.5 H (1.3-7.7) k/uL Lymphocytes # 0.4 L (1.0-4.8) k/uL Sodium 135 L (137-145) mmol/L BUN 24 H (9-20) mg/dL Glucose 107 H (74-99) mg/dL Calcium 8.3 L (8.4-10.2) mg/dL Assessment and Plan Assessment: Postoperative day 2 exploratory laparotomy with sigmoid resection and end colostomy creation Plan: Patient is progressing well. Continue soft diet. His pain is well-controlled. Ostomy nurse was consulted and is going to see patient today. I discussed with the nurse the importance of keeping his incision clean and dry. Continue to work with PT OT. Doing well with incentive spirometry
--- NOTE | 2018-03-23 16:22 | CDI ---
Last Revision, September 2017 Documentation Clarification Form Date: 03/23/18 From: Bernadette Petty RN, CCDS Admit Date: 03/20/2018 5:59:00 PM Patient Name: Wes Ortega Visit Number: [id number] Discharge Date: ATTENTION: The Clinical Documentation Specialists (CDI) and [facility] Coding Staff appreciate your assistance in clarifying documentation. Please respond to the clarification below the line at the bottom and electronically sign. The CDI & [facility] Coding staff will review the response and follow-up if needed. Please note: Queries are made part of the Legal Health Record. If you have any questions, please contact the author of this message via ITS. Dr. Indio Ortiz Post operative respiratory failures are documented in the consult on 03/21/18 and continue in your progress note on 03/22/18 Patients Admitting Diagnosis: Sigmoid volvulus Post-Operative Diagnosis: Same Procedure performed: Exploratory laparotomy with sigmoid resection and end colostomy creation History/Risk Factors: Atrial Fibrillation, Coronary Artery Disease, Hyperlipidemia, Hypertension Myocardial Infarction Clinical Indicators: Present with complaints of abdominal distention CT of abdomen found distended sigmoid colon. Post procedure he was maintained on a ventilator. 03/22/18 Progress notes: He was successfully extubated 03/21/18> He is maintaining good O2 saturations in the high 90s on 2/Lm per nasal cannula. Lung sounds are clear. Vital signs 99/53 86 32 99.8 99 % 2/L NC Treatment: Mechanical ventilation 03/21/18 @ 12:38 extubate 03/21/18 @ 16:35 with wean parameters Monitor O2 Sat's (titrate) Incentive spirometer. Bronchodilators. In order to accurately reflect this patients severity of illness, please clarify if the post-operative diagnosis is: An expected post-procedural or post-surgical condition; Integral to the procedure; Inherent to the procedure; An unexpected post-procedural or post-surgical condition related to surgical care; Other, please specify Unable to determine Please continue to document in your progress notes in order to capture severity of illness and risk of mortality. Include clinical findings that support your diagnosis. MTDD
[2018-03-23] MEDS: WARFARIN 5 MG TAB PO SCH (18:05)
--- NOTE | 2018-03-23 18:13 | P.PN ---
Subjective Progress Note Date: 03/23/18 Principal diagnosis: Volvulus, status post colectomy with colostomy This is an 87-year-old male who came to the emergency room complaining of abdominal pain and distention. The patient apparently was in the emergency room 2 days earlier with similar symptoms. At that time he was given an enema with some relief. The symptoms worsened and the patient came back to the ER. X -ray showed a distended right colon. He was admitted to the hospital and taken to the operating room 03/21/[address] Givens and the patient had a colectomy with colostomy. The patient is seen again today in follow-up in the intensive care unit. He was successfully extubated yesterday. He is awake and alert in no acute distress. He denies any shortness of breath, cough or congestion. He is maintaining good O2 saturations in the high 90s on 2 L/m per nasal cannula. Temperature 99.8. White count 11.1. He remains on bronchodilators. Working well with the incentive spirometer. Ostomy is functioning. On 03/23/2018 patient seen in follow-up on the surgical floor. He is awake alert, he is resting in the recliner, room air pulse ox is 93%, he is afebrile, vital signs are stable, he is compliant with his incentive spirometry, and is able to achieve 4759-9880 mL today. Dyspneic on exertion, otherwise denies any worsening dyspnea, lung sounds are clear to auscultation, with some bibasilar crackles, states his pain is very well controlled, he has been working with physical therapy, he is tolerating regular soft diet. Abdominal incision clean dry and intact well approximated, colostomy is pink and patent was stool in the bag. Today's labs have been reviewed, no new chest x-rays. Patient is progressing well. Continue nebulized bronchodilators, continue pulmonary toileting continue encouraging ambulation with assistance. Objective - Vital Signs Vital signs: Vital Signs Temp 98.3 F 03/23/18 14:26 Pulse 78 03/23/18 15:50 Resp 16 03/23/18 14:26 BP 139/75 03/23/18 14:26 Pulse Ox 93 L 03/23/18 14:26 Intake & Output 03/22/18 03/23/18 03/23/18 18:59 06:59 18:59 Intake Total 60 337 Output Total 670 125 1 Balance -610 -125 336 Intake: IV 60 Lactated Ringers 1,000 ml 60 @ 20 mls/hr IV .Q24H [facility] Rx#:[id number] Oral 337 Output: Urine 420 125 Stool 250 1 Other: Voiding Method Indwelling Catheter # Voids 1 # Bowel Movements 1 2 ABP, PAP, CO, CI - Last Documented Arterial Blood Pressure 133/55 - Exam GENERAL EXAM: Alert, active, comfortable in no apparent distress. HEAD: Normocephalic. EYES: Normal reaction of pupils, equal size. NOSE: Clear with pink turbinates. THROAT: No erythema or exudates. NECK: No masses, no JVD. CHEST: No chest wall deformity. LUNGS: Equal air entry with no crackles, wheeze, rhonchi or dullness. CVS: S1 and S2 normal with no audible murmur, irregular rhythm. ABDOMEN: Colostomy functioning. Mid abdominal incision is clean dry and intact well approximated, abdominal binder is in place SPINE: No scoliosis or deformity SKIN: No rashes CENTRAL NERVOUS SYSTEM: No focal deficits, tone is normal in all 4 extremities. EXTREMITIES: There is no peripheral edema. No clubbing, no cyanosis. Peripheral pulses are intact. - Labs CBC & Chem 7: 03/23/18 07:07 03/23/18 07:07 Labs: Abnormal Lab Results - Last 24 Hours (Table) 03/23/18 03/23/18 Range/Units 07:07 07:07 WBC 12.0 H (3.8-10.6) k/uL RBC 4.15 L (4.30-5.90) m/uL Hgb 12.9 L (13.0-17.5) gm/dL Neutrophils # 10.5 H (1.3-7.7) k/uL Lymphocytes # 0.4 L (1.0-4.8) k/uL Sodium 135 L (137-145) mmol/L BUN 24 H (9-20) mg/dL Glucose 107 H (74-99) mg/dL Calcium 8.3 L (8.4-10.2) mg/dL Assessment and Plan Plan: Assessment Postop day #2, status post colectomy with colostomy for volvulus. 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 History of multiple other comorbidities Plan: Patient name stable from pulmonary standpoint, continue encouraging incentive spirometry use, continue DuoNeb nebulized treatments, vital signs are stable, patient is on room air, he is tolerating extubation quite well, continue encouraging ambulation, continue PT and OT. We will see the patient on as- needed basis, no acute pulmonary issues at this time, thank you for this consultation I performed a history & physical examination of the patient and discussed their management with my nurse practitioner, Stephanie Berrios. I reviewed the nurse practitioner's note and agree with the documented findings and plan of care. Lung sounds are clear. The findings and the impression was discussed with the patient. I attest to the documentation by the nurse practitioner. Time with Patient: Less than 30
[2018-03-23] MEDS: TAMSULOSIN 0.4 MG CAP.ER.24H PO SCH (20:53)
[2018-03-23] MEDS ORDERED: METOPROLOL TARTRATE 50 MG TAB PO STA (22:09)
--- NOTE | 2018-03-23 22:33 | PN ---
PROGRESS NOTE ATTENDING PHYSICIAN: Dr. Anuj Lopez. CHIEF COMPLAINT: Re-evaluation. HISTORY OF PRESENT ILLNESS: This is an 87-year-old who was admitted to the hospital with a bowel obstruction. The patient has undergone surgery with a residual colostomy, left lower quadrant. He had a sigmoid volvulus, which was resected. The patient is actually doing fairly well. He has underlying history of aortic stenosis, valve replaced, VSD repaired. The patient has chronic atrial fibrillation and pacemaker for sick sinus syndrome. He has history of congestive cardiac failure secondary to systolic dysfunction. However, the patient is actually doing fairly well without much difficulty in breathing. REVIEW OF SYSTEMS: NEURO: Denies any headaches, dizziness. PSYCH: No anxiety. CARDIAC: No chest pain, angina, palpitation. RESPIRATORY: No shortness of breath, cough. GI: No nausea, vomiting, abdominal pain, limited to some discomfort. The patient has colostomy with some stool. EXTREMITIES: Denies edema or pain. CONSTITUTIONAL: No fever or chills. PHYSICAL EXAMINATION: Pleasant gentleman in no distress. Vital signs reveal temperature 97.5, pulse 61, respirations 16, blood pressure 166/84, pulse ox of 94% on room air. HEENT: Normocephalic. NECK: No JVD. CHEST: Clear to auscultation with mild decreased air flow at the bases. CARDIAC: Distant heart sounds. S1, S2 with no gallop. Systolic murmur 2/6 left sternal border. ABDOMEN: Mildly tender. Bowel sounds are active. Extremities reveal no edema. No tenderness. NEUROLOGICAL: Awake, alert, oriented x3 with well-coordinated movements. LABORATORY ASSESSMENT: White count 12, hemoglobin 12.9. ASSESSMENT: 1. Status post abdominal surgery. 2. 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 3. History of aortic valve replacement. 4. Paroxysmal atrial fibrillation. 5. Sick sinus syndrome with a pacemaker. 6. Colostomy status. PLAN: Patient is stable. Continue present medical regimen. Patient's condition discussed with the patient. Prognosis is guarded. The patient to ambulate. The patient is probably going to require placement transiently. The patient's condition discussed with the patient. MMODL / IJN: [id number] /
[2018-03-24] MEDS: IPRATROPIUM-ALBUTEROL 3 ML NEB INHALATION SCH ×6 (03:02→23:39)
[2018-03-24 07:35] LABS: INR 1.3 (<1.2); Prothrombin Time 12.3 sec (9.0-12.0)
[2018-03-24] MEDS ORDERED: FUROSEMIDE 10 MG/ML 2 ML VIAL IVP STA (08:26)
[2018-03-24] MEDS: PANTOPRAZOLE 40 MG TABLET PO SCH (08:53)
[2018-03-24] MEDS: NYSTATIN 100,000UNIT/GM CREAM 30 GM TUBE TOPICAL SCH ×2 (08:53→23:16)
[2018-03-24] MEDS: ENOXAPARIN 100 MG/ML SYRINGE SQ SCH ×2 (08:53→21:00)
[2018-03-24] MEDS ORDERED: ASPIRIN 81 MG PO SCH (09:00)
[2018-03-24] MEDS ORDERED: METOPROLOL SUCCINATE (ER) 25 MG TAB.ER.24H PO SCH (09:00)
[2018-03-24 10:49] LABS: Appearance,Urine Clear (Clear); Bilirubin,Urine Negative (Negative); Blood,Urine Trace (Negative); Color,Urine Yellow; Glucose,Urine (UA) Negative (Negative); Ketones,Urine Trace (Negative); Leukocyte Esterase,Urine Negative (Negative); Mucus,Urine Moderate /hpf; Nitrite,Urine Negative (Negative); PH, Urine 5.5 (5.0-8.0); Protein,Urine 1+ (Negative); RBC,Urine 1 /hpf (0-5); Specific Gravity,Urine 1.022 (1.001-1.035); Squamous Epithelial Cell,Urine 1 /hpf (0-4); Urobilinogen,Urine <2.0 mg/dL (<2.0); WBC,Urine 2 /hpf (0-5)
[2018-03-24 11:15] LABS: Basophils % (A) 0 %; Eosinophils # (A) 0.1 k/uL (0-0.7); Eosinophils % (A) 1 %; HCT 35.9 % (39.0-53.0); HGB 11.4 gm/dL (13.0-17.5); Lymphocytes # (A) 0.5 k/uL (1.0-4.8); Lymphocytes % (A) 4 %; MCH 30.2 pg (25.0-35.0); MCHC 31.7 g/dL (31.0-37.0); MCV 95.4 fL (80.0-100.0); Mean Platelet Volume 7.9; Monocytes # (A) 0.9 k/uL (0-1.0); Monocytes % (A) 8 %; Neutrophils # (A) 10.5 k/uL (1.3-7.7); Neutrophils % (A) 86 %; Platelet Count 204 k/uL (150-450); RBC 3.76 m/uL (4.30-5.90); RDW 15.2 % (11.5-15.5); WBC 12.2 k/uL (3.8-10.6)
[2018-03-24 11:19] LABS: Calcium 8.2 mg/dL (8.4-10.2)
[2018-03-24 13:11] VITALS: BMI 31.1
--- NOTE | 2018-03-24 13:19 | P.PN ---
Subjective Progress Note Date: 03/24/18 Patient's more confused today. He is having output out of his ostomy he tolerated his breakfast. He states pain is very well controlled. He had NV once last night but tolerated food today Objective - Vital Signs Vital signs: Vital Signs Temp 97.5 F L 03/24/18 07:00 Pulse 72 03/24/18 11:36 Resp 22 03/24/18 07:00 BP 151/88 03/24/18 07:00 Pulse Ox 96 03/24/18 07:23 Intake & Output 03/23/18 03/24/18 03/24/18 18:59 06:59 18:59 Intake Total 337 540 Output Total 1 225 Balance 336 315 Weight 95.7 kg Intake: Intake, IV Titration 40 Amount Lactated Ringers 1,000 ml 40 @ 20 mls/hr IV .Q24H [facility] Rx#:[id number] Oral 337 500 Output: Urine 225 Stool 1 Other: # Bowel Movements 2 ABP, PAP, CO, CI - Last Documented Arterial Blood Pressure 133/55 - Respiratory Details: SOB on exertion - Gastrointestinal Gastrointestinal Comment(s): soft mild distention, ostomy patent with stool in bag - Labs CBC & Chem 7: 03/24/18 06:56 03/24/18 06:56 Labs: Abnormal Lab Results - Last 24 Hours (Table) 03/24/18 03/24/18 03/24/18 Range/Units 06:56 06:56 06:56 WBC 12.2 H (3.8-10.6) k/uL RBC 3.76 L (4.30-5.90) m/uL Hgb 11.4 L (13.0-17.5) gm/dL Hct 35.9 L (39.0-53.0) % Neutrophils # 10.5 H (1.3-7.7) k/uL Lymphocytes # 0.5 L (1.0-4.8) k/uL PT 12.3 H (9.0-12.0) sec INR 1.3 H (<1.2) Sodium 134 L (137-145) mmol/L BUN 34 H (9-20) mg/dL Glucose 134 H (74-99) mg/dL Calcium 8.2 L (8.4-10.2) mg/dL Urine Protein (Negative) Urine Ketones (Negative) Urine Blood (Negative) Urine Mucus (None) /hpf 03/24/18 Range/Units 10:30 WBC (3.8-10.6) k/uL RBC (4.30-5.90) m/uL Hgb (13.0-17.5) gm/dL Hct (39.0-53.0) % Neutrophils # (1.3-7.7) k/uL Lymphocytes # (1.0-4.8) k/uL PT (9.0-12.0) sec INR (<1.2) Sodium (137-145) mmol/L BUN (9-20) mg/dL Glucose (74-99) mg/dL Calcium (8.4-10.2) mg/dL Urine Protein 1+ H (Negative) Urine Ketones Trace H (Negative) Urine Blood Trace H (Negative) Urine Mucus Moderate H (None) /hpf Assessment and Plan Assessment: Postoperative day 3 exploratory laparotomy with sigmoid resection and end colostomy creation Plan: Continue soft diet. His pain is well-controlled. Ostomy nurse is consulted. Continue to work with PT OT. cont IS.
[2018-03-24 14:56] VITALS: TEMP 97.9
[2018-03-24] MEDS ORDERED: MAG HYDROX/AL HYDROX/SIMETH 30 ML CUP PO PRN (17:37)
[2018-03-24] MEDS ORDERED: FAMOTIDINE 20 MG/2 ML VIAL IV STA (17:39)
[2018-03-24] MEDS: ACETAMINOPHEN TAB 325 MG TAB PO PRN (17:56)
[2018-03-24] MEDS: WARFARIN 5 MG TAB PO SCH (17:57)
[2018-03-24 19:13] LABS: Glucose,Whole Blood 209 mg/dL (75-99)
[2018-03-24 19:23] LABS: Glucose,Whole Blood 131 mg/dL (75-99)
[2018-03-24] MEDS ORDERED: NOREPINEPHRIN 4 MG-0.9% NS PMX 4 MG/250 ML ML IV ONE (19:42)
[2018-03-24] MEDS ORDERED: PROPOFOL 100 ML IV ONE (19:55)
[2018-03-24 20:01] LABS: ABG Base Excess -9.5 mmol/L; ABG HCO3 17 mmol/L (21-25); ABG Oxygen Saturation 98.7 % (94-97); ABG PCO2 38 mmHg (35-45); ABG PH 7.27 (7.35-7.45); ABG PO2 185 mmHg (83-108); ABG TCO2 19 mmol/L (19-24)
[2018-03-24 20:04] LABS: HCT 33.4 % (39.0-53.0); HGB 10.3 gm/dL (13.0-17.5); Hypochromasia Moderate; MCH 30.8 pg (25.0-35.0); MCV 99.5 fL (80.0-100.0); Macrocytosis Slight; Mean Platelet Volume 8.2; Platelet Count 200 k/uL (150-450); RBC 3.35 m/uL (4.30-5.90); RDW 14.9 % (11.5-15.5); WBC 10.6 k/uL (3.8-10.6)
[2018-03-24] MEDS ORDERED: PROPOFOL 1,000 MG in EMPTY BAG 1 BAG IV SCH (20:15)
[2018-03-24] MEDS ORDERED: NOREPINEPHRIN 4 MG-0.9% NS PMX 4 MG/250 ML ML IV SCH (20:15)
--- NOTE | 2018-03-24 20:26 | P.PN ---
Subjective Progress Note Date: 03/24/18 This 87-year-old gentleman was admitted to the hospital with the acute sigmoid volvulus. Patient was seen this morning on rounds patient's vital signs were stable as sitting up in a chair but confused. He knew who I was but in between he will continue to talk which was irrelevant. Patient had labs ordered. Reevaluated the patient this afternoon, the labs were reasonable. The patient was more alert though the patient was more alert though still some confused. He complained of some pain when he swallowed water at the epigastric area. He had earlier a small emesis and had not eaten subsequently. The patient has had some stool mild distention of the abdomen. Colostomy is functioning. At about 6:45 hours: The patient heart rate was up 170. Recommended that the patient be transferred to telemetry. In the next few minutes the patient had acute asystole and cardiac arrest. CPR was started. I came in right away. Patient' s post CPR hydration was 130 blood pressure was 130/90. Patient was intubated and leg. Patient is being transferred to the ICU. After the 100 100s 70 patient had a large emesis of coffee-ground material. Patient seen in the ICU again. Patient's vitals are labile blood pressure running from 6200 range patient has been started on Levophed. Dr. jones the surgeon also present at the same time. He placed his central line right femoral since patient has been on Lovenox. Patient's prognosis remains guarded he has underlying history of coronary artery disease and mitral regurgitation and replaced aortic valve and a previous VSD surgery. He has had a history of atrial fibrillation and is a pacemaker. After discussion with the family the and son and the daughter recommended no aggressive measures if he has in the cardiac arrest or if his blood pressure gets too low we will make him comfort care only. REVIEW OF SYSTEMS: When patient was seen this morning and afternoon Neuro: Denies any headaches dizziness. Psych: No anxiety but patient's confused Cardiac: Denies chest pain and angina palpitations. Respiratory: Denies shortness of breath . GI: Denies any nausea had some pain in the epigastric area with swallowing water. Colostomy with stool : Denies dysuria hematuria. Low urine output Extremities: Denies pain. Some edema. Skin: Intact. Constitutional: No fever, chills. Objective - Vital Signs Vital signs: Vital Signs Temp 97.9 F 03/24/18 14:56 Pulse 64 03/24/18 15:53 Resp 18 03/24/18 14:56 BP 107/69 03/24/18 14:56 Pulse Ox 98 03/24/18 15:39 Intake & Output 03/24/18 03/24/18 03/25/18 06:59 18:59 06:59 Intake Total 540 840 Output Total 225 44 Balance 315 796 Weight 95.7 kg Intake: Intake, IV Titration 40 Amount Lactated Ringers 1,000 ml 40 @ 20 mls/hr IV .Q24H [facility] Rx#:[id number] Oral 500 840 Output: Urine 225 Post Void Residual 44 Other: Voiding Method Urinal # Voids 2 # Bowel Movements 1 ABP, PAP, CO, CI - Last Documented Arterial Blood Pressure 133/55 PHYSICAL EXAMINATION: Cooperative, at present in no acute distress. HEENT: Neck supple. No JVD. Chest: Clear to auscultation. Cardiac: Normal S1-S2 with irregular beats no gallops [systolic murmur at apex Abdomen: Soft bowel sounds decreased. Extremities: 1+ edema no tenderness Neurologically: Awake, alert, confused with well-coordinated movements. - Labs CBC & Chem 7: 03/24/18 19:30 03/24/18 06:56 Labs: Abnormal Lab Results - Last 24 Hours (Table) 03/24/18 03/24/18 03/24/18 Range/Units 06:56 06:56 06:56 WBC 12.2 H (3.8-10.6) k/uL RBC 3.76 L (4.30-5.90) m/uL Hgb 11.4 L (13.0-17.5) gm/dL Hct 35.9 L (39.0-53.0) % Neutrophils # 10.5 H (1.3-7.7) k/uL Lymphocytes # 0.5 L (1.0-4.8) k/uL PT 12.3 H (9.0-12.0) sec INR 1.3 H (<1.2) ABG pH (7.35-7.45) ABG pO2 (83-108) mmHg ABG HCO3 (21-25) mmol/L ABG O2 Saturation (94-97) % Sodium 134 L (137-145) mmol/L BUN 34 H (9-20) mg/dL Glucose 134 H (74-99) mg/dL POC Glucose (mg/dL) (75-99) mg/dL Calcium 8.2 L (8.4-10.2) mg/dL Urine Protein (Negative) Urine Ketones (Negative) Urine Blood (Negative) Urine Mucus (None) /hpf 03/24/18 03/24/18 03/24/18 Range/Units 10:30 19:04 19:21 WBC (3.8-10.6) k/uL RBC (4.30-5.90) m/uL Hgb (13.0-17.5) gm/dL Hct (39.0-53.0) % Neutrophils # (1.3-7.7) k/uL Lymphocytes # (1.0-4.8) k/uL PT (9.0-12.0) sec INR (<1.2) ABG pH (7.35-7.45) ABG pO2 (83-108) mmHg ABG HCO3 (21-25) mmol/L ABG O2 Saturation (94-97) % Sodium (137-145) mmol/L BUN (9-20) mg/dL Glucose (74-99) mg/dL POC Glucose (mg/dL) 209 H 131 H (75-99) mg/dL Calcium (8.4-10.2) mg/dL Urine Protein 1+ H (Negative) Urine Ketones Trace H (Negative) Urine Blood Trace H (Negative) Urine Mucus Moderate H (None) /hpf 03/24/18 03/24/18 Range/Units 19:30 19:58 WBC (3.8-10.6) k/uL RBC 3.35 L (4.30-5.90) m/uL Hgb 10.3 L (13.0-17.5) gm/dL Hct 33.4 L (39.0-53.0) % Neutrophils # (1.3-7.7) k/uL Lymphocytes # (1.0-4.8) k/uL PT (9.0-12.0) sec INR (<1.2) ABG pH 7.27 L (7.35-7.45) ABG pO2 185 H (83-108) mmHg ABG HCO3 17 L (21-25) mmol/L ABG O2 Saturation 98.7 H (94-97) % Sodium (137-145) mmol/L BUN (9-20) mg/dL Glucose (74-99) mg/dL POC Glucose (mg/dL) (75-99) mg/dL Calcium (8.4-10.2) mg/dL Urine Protein (Negative) Urine Ketones (Negative) Urine Blood (Negative) Urine Mucus (None) /hpf Microbiology - Last 24 Hours (Table) 03/24/18 10:30 Urine Culture - Preliminary Urine,Clean Catch Assessment and Plan Assessment: ASSESSMENT: 1. Atrial fibrillation rapid ventricular rate. 2. Ventricular tachycardia possible. 3. Cardiac arrest. 4. Coffee-ground emesis. 5. Normal coronary artery disease and valvular heart disease. 6. Pacemaker status. 7. Respiratory failure post-CPR. 8. Status post surgery for volvulus. PLAN: Patient was seen this morning doing reasonably well except for confusion. With about reevaluation within reason able range. Her vital signs remained stable during the day when he had an episode of tachycardia, coffee-ground emesis and then cardiac arrest. Patient is post-CPR in the ICU. As mentioned above but discussion with the family they were before no further aggressive measures in the event condition deteriorates. And they want me to make the decision and call when to stop medical care and start comfort care. Time with Patient: Greater than 30
[2018-03-24] MEDS ORDERED: SODIUM CHLORIDE 0.9% 1,000 ML IV ONE ×5 (20:30→23:12)
[2018-03-24 20:38] LABS: HCT 27.4 % (39.0-53.0); Hypochromasia Slight; MCH 29.1 pg (25.0-35.0); MCV 96.7 fL (80.0-100.0); Mean Platelet Volume 7.5; Platelet Count 164 k/uL (150-450); RBC 2.83 m/uL (4.30-5.90); RDW 14.7 % (11.5-15.5); WBC 6.7 k/uL (3.8-10.6)
--- NOTE | 2018-03-24 20:39 | XR ---
EXAMINATION TYPE: XR chest 1V portable DATE OF EXAM: 03/24/2018 COMPARISON: 02/16/2017 INDICATION: ET tube placement, difficulty breathing TECHNIQUE: Single frontal view of the chest is obtained. FINDINGS: The heart size is enlarged. The pulmonary vasculature is normal. There is a left lower lobe infiltrate. There is placement of an endotracheal tube above the srikanth. Nasogastric tube transverses the thoraci c region with tip within the proximal left upper quadrant of the abdomen. This could be advanced appr oximately 6 cm. IMPRESSION: 1. Left lower lobe infiltrate. Mild right lower lobe infiltrate is not excluded. 2. Lines and catheters discussed above. Endotracheal tube tip is above the srikanth. The nasogastric tu be tube could be advanced approximately 6 cm.
[2018-03-24 20:45] LABS: HGB 8.2 gm/dL (13.0-17.5)
[2018-03-24 20:51] LABS: Calcium 7.6 mg/dL (8.4-10.2); Potassium 5.1 mmol/L (3.5-5.1)
[2018-03-24] MEDS ORDERED: CISATRACURIUM 2 MG/ML 5 ML VIAL IV ONE (21:04)
[2018-03-24] MEDS ORDERED: CISATRACURIUM 200 MG in SODIUM CHLORIDE 0.9% 180 ML IV SCH (21:15)
[2018-03-24] MEDS ORDERED: VANCOMYCIN IV PER PHARMACY 1 EACH MISC MISCELLANE PRN (21:28)
[2018-03-24 21:29] LABS: HCT 27.1 % (39.0-53.0); HGB 8.5 gm/dL (13.0-17.5); Hypochromasia Slight; MCH 30.4 pg (25.0-35.0); MCHC 31.2 g/dL (31.0-37.0); MCV 97.4 fL (80.0-100.0); Mean Platelet Volume 7.6; Platelet Count 155 k/uL (150-450); RBC 2.78 m/uL (4.30-5.90); RDW 14.8 % (11.5-15.5); WBC 2.4 k/uL (3.8-10.6)
[2018-03-24] MEDS ORDERED: PIPERACILLIN-TAZOBACTAM 3.375 GM in DEXTROSE/WATER 1 50ML.BAG IVPB SCH (21:30)
[2018-03-24] MEDS: SODIUM CHLORIDE 0.9% 99 ML with VASOPRESSIN 20 UNIT IV SCH ×2 (21:45)
[2018-03-24] MEDS ORDERED: VANCOMYCIN 2,000 MG in SODIUM CHLORIDE 0.9% 500 ML IVPB ONE (22:00)
[2018-03-24 22:33] LABS: ABG Base Excess -9.5 mmol/L; ABG HCO3 19 mmol/L (21-25); ABG Oxygen Saturation 88.6 % (94-97); ABG PCO2 51 mmHg (35-45); ABG PO2 70 mmHg (83-108); ABG TCO2 21 mmol/L (19-24)
[2018-03-24 22:36] LABS: ABG PH 7.18 (7.35-7.45)
[2018-03-24] MEDS: TAMSULOSIN 0.4 MG CAP.ER.24H PO SCH (23:17)
[2018-03-24] MEDS ORDERED: SCOPOLAMINE 1.5MG/72HR PATCH TRANSDERM PRN (23:41)
[2018-03-24] MEDS ORDERED: ATROPINE OPHTH SOLN 1% 5ML BTL SUBLINGUAL PRN (23:41)
[2018-03-24] MEDS ORDERED: MORPHINE SULFATE 2 MG/ML SYRINGE IV PRN ×2 (23:41)
[2018-03-24] MEDS ORDERED: MORPHINE SULFATE (100 MG/2 ML) 100 MG in SODIUM CHLORIDE 0.9% 100 ML IV SCH (23:45)
[2018-03-25] MEDS ORDERED: ARTIFICIAL TEARS OINTMENT 3.5 GM TUBE BOTH EYES SCH
[2018-03-25] MEDS ORDERED: ARTIFICIAL TEARS-HYPROMELLOSE DROPS 15 ML BTL BOTH EYES SCH
[2018-03-25] MEDS: SODIUM CHLORIDE 0.9% 99 ML with VASOPRESSIN 20 UNIT IV SCH ×4 (00:45)
[2018-03-25 00:55] VITALS: BP 79/52; PULSE 141; RESP 30
[2018-03-25] MEDS ORDERED: VANCOMYCIN 1,500 MG in SODIUM CHLORIDE 0.9% 250 ML IVPB ONE (20:00)
== END 2018-03-25 01:29 | disposition expired | DRG 329 ==
LOC: EC 13:45 → 3SUR 17:59 → 6ICU 03-21 12:11 → 3SUR 03-22 12:33 → 6ICU 03-24 19:10
PROVIDERS: ADMIT Internal Medicine; ATTEND Internal Medicine
PROC: 0DBN0ZZ Excision of Sigmoid Colon, Open Approach (ICD-10-PCS; principal; 2018-03-20)
PROC: 0D1N0Z4 Bypass Sigmoid Colon to Cutaneous, Open Approach (ICD-10-PCS; principal; 2018-03-20)
PROC: 0BH18EZ Insertion of Endotracheal Airway into Trachea, Via Natural or Artificial Opening Endoscopic (ICD-10-PCS; 2018-03-24)
PROC: 5A1935Z Respiratory Ventilation, Less than 24 Consecutive Hours (ICD-10-PCS; 2018-03-24)
DX: K56.2 Volvulus (principal); J96.90 Respiratory failure, unspecified, unspecified whether with hypoxia or hypercapnia; I50.22 Chronic systolic (congestive) heart failure; I47.2 Ventricular tachycardia; K59.39 Other megacolon; E78.5 Hyperlipidemia, unspecified; G47.30 Sleep apnea, unspecified; H54.61 Unqualified visual loss, right eye, normal vision left eye; I11.0 Hypertensive heart disease with heart failure; I25.10 Atherosclerotic heart disease of native coronary artery without angina pectoris; I25.2 Old myocardial infarction; I34.0 Nonrheumatic mitral (valve) insufficiency; I46.9 Cardiac arrest, cause unspecified; I48.2 Chronic atrial fibrillation; K56.7 Ileus, unspecified; Z79.01 Long term (current) use of anticoagulants; Z79.82 Long term (current) use of aspirin; Z80.3 Family history of malignant neoplasm of breast; Z87.74 Personal history of (corrected) congenital malformations of heart and circulatory system; Z95.0 Presence of cardiac pacemaker; Z95.1 Presence of aortocoronary bypass graft; Z95.2 Presence of prosthetic heart valve; Z98.41 Cataract extraction status, right eye
CPT/HCPCS: 36415; 36600; 71045; 74018; 74177; 80048; 80053; 81001; 81003; 82150; 82805; 83605; 83690; 83735; 84100; 85025; 85027; 85610; 86140; 86850; 86900; 86901; 86920; 87086; 88307; 93005; 94002; 94003; 94640; 94760; 96361; 96372; 96374; 96375; 96376; 99284; 99285